=== PATIENT | male | born 1950 | race Caucasian/White ===

== ENCOUNTER 2016-06-24 00:03 | Emergency (ER) | payer OTHER, MEDICARE ==
[~2016-06-24] VITALS: Ht 180.3 cm; Wt 97.1 kg
[~2016-06-24 00:03] MED LIST: CLOPIDOGREL75 M1 PO; PROAIR HFA0.09 MG/Ac
--- NOTE | 2016-06-24 00:08 | ED GI/GU/ABDOMINAL COMPLAINT ---
History of Present Illness General Chief Complaint: General Adult Stated Complaint: ?UTI WITH GI BLEED Source: patient Exam Limitations: no limitations Vital Signs & Intake/Output Vital Signs & Intake/Output Vital Signs Date Time Temp Pulse Resp B/P Pulse O2 O2 Flow FiO2 Ox Delivery Rate 06/24 0035 98 Nasal 3.0L Cannula 06/24 0018 97.4 82 20 136/63 98 Nasal 3.0L Cannula Allergies Coded Allergies: aspirin (Severe, HIVES AND RESPIRATORY 07/29/15) Reconcile Medications Albuterol Sulfate (Proair Hfa) 0.09 MG/Actuation KRYSTIAN UKNWN (Reported) CLOPIDOGREL BISULFATE (Clopidogrel) 75 MG TAB UKN (Reported) Triage Note: PT BIBA [facility] HOME C/O OF HEMUTRIA SINCE YESTERDAY. PT CURRENTLY BEING TREATED FOR UTI. Triage Nurses Notes Reviewed? yes Onset: Gradual Duration: hour(s): Timing: recent history Quality/Severity: no pain Location: "I peed blood." Radiation: no radiation Activities at Onset: none Prior Abdominal Problems: similar symptoms Modifying Factors: Improves With: rest. Associated Symptoms: hematuria HPI: 66 yo gentleman h/o hematuria, on plavix, presents with 2 episodes of hematuria. He notes, "My urine has been dark in the past... red in the past... but today I had a small clot... that was a little different." He notes that he recently completed a course of antibiotics for a uti. He notes no difficulty voiding, no pain, dysuria, fever, chills, flank pain. He is otherwise well. Past History Travel History Traveled to [place] past 21 day No Medical History Any Pertinent Medical History? see below for history Other Medical Hx: hematuria History of MRSA: No History of VRE: No History of CDIFF: No Pneumonia Vaccine: 03/28/10 Influenza Vaccine: 02/25/13 Surgical History Surgical History: none Psychosocial History Who do you live with Spouse Services at Home None What is your primary language Japanese Family History Family History, If Any: Relation not specified for: FH: stroke Hx Contributory? No Review of Systems Review of Systems Constitutional: Reports: no symptoms. EENTM: Reports: no symptoms. Respiratory: Reports: no symptoms. Cardiovascular: Reports: no symptoms. GI: Reports: no symptoms. Genitourinary: Reports: no symptoms. Musculoskeletal: Reports: no symptoms. Skin: Reports: no symptoms. Neurological/Psychological: Reports: no symptoms. Hematologic/Endocrine: Reports: no symptoms. Immunologic/Allergic: Reports: no symptoms. All Other Systems: Reviewed and Negative Physical Exam Physical Exam General Appearance: well developed/nourished, no apparent distress Head: atraumatic Eyes: Bilateral: normal appearance. Ears, Nose, Throat, Mouth: hearing grossly normal Neck: normal inspection Respiratory: normal breath sounds Cardiovascular: regular rate/rhythm Gastrointestinal: normal bowel sounds, soft, non-tender, no organomegaly Back: normal inspection Extremities: normal range of motion Neurologic/Psych: no motor/sensory deficits, awake, alert, oriented x 3 Skin: intact, normal color, warm/dry Core Measures ACS in differential dx? No Severe Sepsis Present: No Septic Shock Present: No Progress Differential Diagnosis: UTI/pyelo, hematuria Plan of Care: Orders Procedure Date/time Status URINALYSIS 06/24 7 Complete PARTIAL THROMBOPLASTIN TIME 06/24 7 Complete PROTHROMBIN TIME 06/24 7 Complete COMPREHENSIVE METABOLIC PANEL 06/24 7 Complete CBC WITHOUT DIFFERENTIAL 06/24 7 Complete TYPE & SCREEN (NOT X-MATCH) 06/24 7 Complete Laboratory Tests 06/24/16 0155: Urine Color BLDY H, Urine Clarity HAZY H, Urine pH 7.5, Ur Specific Alex 1.015, Urine Protein 30 H, Urine Ketones NEG, Urine Nitrite NEG, Urine Bilirubin NEG, Urine Urobilinogen 0.2, Ur Leukocyte Esterase NEG, Ur Microscopic SEDIMENT EXAMINED, Urine RBC PACKD H, Urine WBC 1-3 H, Urine Hemoglobin LARGE H, Urine Glucose NEG 06/24/16 0020: Anion Gap 8, Estimated GFR 40 L, BUN/Creatinine Ratio 14.7, Glucose 199 H, Calcium 9.2, Total Bilirubin 0.6, AST 18, ALT 29, Alkaline Phosphatase 104, Total Protein 7.5, Albumin 3.7, Globulin 3.8, Albumin/Globulin Ratio 1.0 L, PT 10.1, INR 0.96, APTT 29, CBC w Diff NO MAN DIFF REQ, RBC 3.51 L, MCV 92.4, MCH 31.3 H, RDW 16.5 H, MPV 7.3 L, Gran % 74.8, Lymphocytes % 15.7 L, Monocytes % 6.7, Eosinophils % 2.5, Basophils % 0.3, Absolute Granulocytes 5.5, Absolute Lymphocytes 1.1 L, Absolute Monocytes 0.5, Absolute Eosinophils 0.2, Absolute Basophils 0, PUBS MCHC 33.8 Initial ED EKG: none Departure Departure Disposition: HOME OR SELF CARE Condition: Stable Clinical Impression Primary Impression: Hematuria Referrals: LETICIA IRAHETA,RICKY Reilly (PCP/Family) Departure Forms: Customer Survey General Discharge Information Comments Mr. burt feels well in the ED. He has to MrRaheem that he is able to void without problem. His urine is tinged with bright red blood but there are no clots. He has no signs or symptoms of a urinary tract infection and recently completed oral antibiotics. I do not believe he has an infected urine. I would like to defer antibiotics given his recent course. I encouraged close follow-up with urology.
[2016-06-24 00:18] VITALS: BP 136/63
[2016-06-24 00:43] LABS: ABSOLUTE BASOPHIL COUNT 0 /CUMM (0.0-0.2); ABSOLUTE EOSINOPHIL COUNT 0.2 /CUMM (0.0-0.7); ABSOLUTE GRANULOCYTE CT 5.5 /CUMM (1.4-6.5); ABSOLUTE LYMPH COUNT 1.1 /CUMM (1.2-3.4); ABSOLUTE MONOCYTE COUNT 0.5 /CUMM (0.10-0.60); BASOPHIL % 0.3 % (0.0-2.0); EOSINOPHIL % 2.5 % (0-5); GRANULOCYTE % 74.8 % (42.2-75.2); HEMATOCRIT 32.5 % (42-52); MEAN CORPUSCULAR HGB 31.3 PG (27.0-31.0); MEAN CORPUSCULAR HGB CONC 33.8 G/DL (33.0-37.0); MEAN CORPUSCULAR VOLUME 92.4 FL (80.0-94.0); MEAN PLATELET VOLUME 7.3 FL (7.4-10.4); PLATELET COUNT 225 /CUMM (130-400); RBC DISTRIBUTION WIDTH 16.5 % (11.5-14.5); RED BLOOD CELL CT 3.51 /CUMM (4.70-6.10); WHITE BLOOD CELL COUNT 7.3 /CUMM (4.8-10.8)
[2016-06-24 00:52] LABS: PT 10.1 SEC (9.4-12.5); PTT 29 SEC (25-37)
[2016-06-28] MEDS ORDERED: OXYCODONE HCL20 M2 PO (15:25)
[2016-06-28] MEDS ORDERED: FINASTERIDE5 M1 PO (15:25)
[2016-06-28] MEDS ORDERED: FUROSEMIDE40 M1 PO (15:25)
[2016-06-28] MEDS ORDERED: CARVEDILOL12.5 M1 PO (15:25)
[2016-06-28] MEDS ORDERED: ZETIA10 M1 PO (15:26)
[2016-06-28] MEDS ORDERED: PROAIR HFA8.5 GM INH (15:27)
[2016-06-28] MEDS ORDERED: RAPAFLO8 M1 PO (15:27)
== END 2016-06-24 02:52 ==
LOC: ERH 00:03
PROVIDERS: Pediatrics
DX: R31.9 Hematuria, unspecified (principal)
CPT/HCPCS: 81001

== ENCOUNTER → 2016-06-29 | Day surgery (SDC) | payer OTHER, MEDICARE ==
[~2016-06-29] VITALS: Ht 182.9 cm; Wt 97.1 kg
[~2016-06-29] MED LIST changes: +AMOX-CLAV 500-1 EACH PO; +CARVEDILOL12.5 M1 PO; +FINASTERIDE5 M1 PO; +FUROSEMIDE40 M1 PO; +HYDROMORPHONE HC2 M1 PO; +LANTUS SOL100 UNIT/1 SC; +LORAZEPAM1 M1 PO; +LOSARTAN POTASS25 M1 PO; +MIRALAX119 GM PO; +OXYCODONE HCL10 M2 PO; +OXYCODONE HCL20 M2 PO; +PREDNISONE10 M2 PO; +PROAIR HFA8.5 GM INH; +RANITIDINE HCL150 MG PO; +RAPAFLO8 M1 PO; +TERAZOSIN HCL2 M1 PO; +TESSALON PERLE100 M1 PO; +ZETIA10 M1 PO; +ZITHROMAX250 M2 PO
--- NOTE | 2016-06-29 17:26 | Operative Report ---
Operative/Inv Procedure Report Surgery Date: 06/29/16 Name of Procedure: Cystoscopy. TURBT of 2 cm left lateral wall tumor. Pre-Operative Diagnosis: Gross hematuria Post-Operative Diagnosis: Bladder cancer Estimated Blood Loss: less than 50ml Surgeon/Bath House Attendant: MONIQUE HAY MD Anesthesia: laryngeal mask airway Drains: 18 Czech Adhikari catheter Specimens: Bladder tumor Complications: None Operative/Procedure Note Note: The patient was taken to the operating room, and placed on the OR table in supine position. Timeout was performed, with the patient awake, to confirm correct patient, procedure, anesthesia, antibiotics, and other pertinent jose- operative information. After adequate anesthesia and antibiotics, the patient was then placed in lithotomy stirrups, draped and prepped in usual surgical fashion. A 26 Czech resectoscope sheath with a 30 angle lens, and 24 Czech loop, was inserted into the urethra, and advanced into the bladder without difficulty. Upon entering the bladder, the bladder was noted to be mildly trabeculated. Both ureteral orifices were in their orthotopic position, with clear reflux bilaterally. A solitary 2 Cm papillary lesion was visualized on the lateral wall of the bladder, consistent with tumor. No other tumors were seen on thorough and systematic surveillance. Under direct visualization, using the 24 Czech loop with cutting current, this 2 cm papillary lesion was resected from superficial to deeper layers, including partial detrusor muscle base resection. The entire tumor was removed, along with a 0.5 cm margin of normal mucosa. The tumor fragments were evacuated, and sent to pathology. Cauterization of the base of the tumor resection was performed, in order to achieve good hemostasis. The bladder was copiously irrigated once again with 3 L of sorbitol. The resectoscope was removed leaving the bladder full. The bladder was drained by placing a 18 Czech Adhikari catheter, without difficulty, and with clear fluid. 10 mL of sterile water was placed in the balloon, and the Adhikari catheter was plugged after complete decompression of the bladder. All sponge needle and instrument count were correct at the case pharmacy was contacted to determine if mitomycin 40 mg was available for bladder instillation now, and it was not. The patient tolerated procedure well was then taken to recovery room in satisfactory condition. The patient is scheduled for follow-up in the office in 1-2 weeks time. Additional Comments: Mitomycin was not available immediately postoperatively CC: MONIQUE HAY MD
== END ==
LOC: STS 01:12
DX: C67.2 Malignant neoplasm of lateral wall of bladder (principal); N32.89 Other specified disorders of bladder; R31.0 Gross hematuria; I10 Essential (primary) hypertension; J44.9 Chronic obstructive pulmonary disease, unspecified; Z99.81 Dependence on supplemental oxygen; Z87.891 Personal history of nicotine dependence
CPT/HCPCS: 88307; J0131; J0690; J2250

== ENCOUNTER 2016-07-02 08:27 | Emergency (ER) | payer OTHER, MEDICARE ==
[~2016-07-02] VITALS: Ht 180.3 cm; Wt 97.1 kg
[~2016-07-02 08:27] MED LIST changes: -AMOX-CLAV 500-1 EACH PO; -HYDROMORPHONE HC2 M1 PO; -LANTUS SOL100 UNIT/1 SC; -LORAZEPAM1 M1 PO; -LOSARTAN POTASS25 M1 PO; -MIRALAX119 GM PO; -OXYCODONE HCL10 M2 PO; -PREDNISONE10 M2 PO; -RANITIDINE HCL150 MG PO; -TERAZOSIN HCL2 M1 PO; -TESSALON PERLE100 M1 PO; -ZITHROMAX250 M2 PO
--- NOTE | 2016-07-02 08:34 | NUR ---
PT LUH FROM HOME WITH C/O SOB TODAY. PT STATES HE WAS HYPERVENTILATING BECAUSE HIS DUNCAN WASNT DRAINING. PT STATES HE HAD BLADDER SURGERY ON SUNDAY BY DR HAY.
--- NOTE | 2016-07-02 08:39 | ED DYSPNEA/ASTHMA COMPLAINT ---
History of Present Illness General Chief Complaint: Dyspnea (COPD, CHF, Other) Stated Complaint: SOB Source: patient, family, EMS Exam Limitations: no limitations Vital Signs & Intake/Output Vital Signs & Intake/Output Vital Signs Date Time Temp Pulse Resp B/P Pulse O2 O2 Flow FiO2 Ox Delivery Rate 07/02 1314 98.0 77 20 147/65 99 Nasal 3.0L Cannula 07/02 937 100 Nasal 3.5L Cannula 07/02 918 98.7 80 20 118/60 96 Room Air 07/02 0833 98.0 85 20 127/62 98 Room Air Allergies Coded Allergies: aspirin (Severe, HIVES AND RESPIRATORY 07/29/15) Reconcile Medications Albuterol Sulfate (Proair Hfa) 90 MCG HFA.AER.AD 2 PUF INH Q4 HRS NEEDED PRN BREATHING PROBLEMS (Reported) Albuterol Sulfate (Proair Hfa) 0.09 MG/Actuation KRYSTIAN UKNWN (Reported) Amoxicillin/Potassium Clav (Amox-Clav 500-125 MG Tablet) 500 MG-125 MG TABLET 1 TAB PO BID ANTIBIOTIC, INFECTION (Reported) Carvedilol 12.5 MG TABLET 1 TAB PO BID HEART (Reported) Clopidogrel Bisulfate (Clopidogrel) 75 MG TABLET 1 TAB PO DAILY BLOOD THINNER (Reported) Ezetimibe (Zetia) 10 MG TABLET 1 TAB PO DAILY CHOLESTEROL (Reported) Finasteride 5 MG TABLET 1 TAB PO DAILY PROSTATE (Reported) Furosemide 40 MG TABLET 1 TAB PO BID WATER PILL (Reported) Hydromorphone HCl 2 MG TABLET 1 TAB PO TID PAIN (Reported) Oxycodone HCl 20 MG TABLET 1 TAB PO 4 TIMES/DAY PAIN (Reported) Silodosin (Rapaflo) 8 MG CAPSULE 1 CAP PO DAILY PROSTATE (Reported) Triage Note: PT BIBA FROM HOME WITH C/O SOB TODAY. PT STATES HE WAS HYPERVENTILATING BECAUSE HIS DUNCAN WASNT DRAINING. PT STATES HE HAD BLADDER SURGERY ON SUNDAY BY DR MARY. Triage Nurses Notes Reviewed? yes Onset: Abrupt Duration: 3 AM, THEN AGAIN AT 5 AM Timing: multiple episodes today Severity: mild Activities at Onset: PROBLEM WITH DUNCAN CATHETER Associated Symptoms: anxiety, HYPERVENTILATION HPI: This is a 66-year-old carmella who presents via EMS from home accompanied by his 9- year-old grandson for chief complaint of shortness of breath. EMS was called twice since this morning for Duncan catheter issues. Became both times and change the direction of the bowel which allowed the urine flow. He states the second time he was very worried and started to hyperventilate. EMS asked him if he wanted to come to the ER for evaluation. Patient currently states he has no complete. No chest pain or shortness of breath. No abdominal pain. He states he feels a little constipated. We'll catheter in place and is draining urine. He is status post a cancerous polyp removal by Dr. Mary is due to get chemotherapy once weekly. According to the son who arrived later his usually helps to take care of him at home has been admitted to the hospital for last 3 days. Past History Travel History Traveled to [place] past 21 day No Medical History Any Pertinent Medical History? see below for history Respiratory: COPD Endocrine: diabetes Other Medical Hx: hematuria History of MRSA: No History of VRE: No History of CDIFF: No Surgical History Surgical History: none Psychosocial History Who do you live with Spouse Services at Home None What is your primary language Nepali Tobacco Use: Never used ETOH Use: denies use Illicit Drug Use: denies illicit drug use Family History Family History, If Any: Relation not specified for: FH: stroke Hx Contributory? No Review of Systems Review of Systems Constitutional: Denies: chills, fever. EENTM: Reports: no symptoms. Respiratory: Reports: short of breath. Denies: cough, sputum production. Cardiovascular: Denies: chest pain. GI: Denies: abdominal pain. Genitourinary: Reports: see HPI (CATHETER ISSUE). Musculoskeletal: Denies: back pain. Skin: Reports: no symptoms. Neurological/Psychological: Reports: no symptoms. Hematologic/Endocrine: Reports: bleeding. Denies: bruising, polyuria, polydipsia. Immunologic/Allergic: Denies: splenectomy. All Other Systems: Reviewed and Negative Physical Exam Physical Exam General Appearance: well developed/nourished, alert, awake, mild distress Head: atraumatic, normal appearance Eyes: Bilateral: normal appearance, PERRL, EOMI. Ears, Nose, Throat: normal pharynx, normal ENT inspection, hearing grossly normal Neck: normal inspection, supple Respiratory: normal breath sounds, chest non-tender, no respiratory distress Cardiovascular: regular rate/rhythm Peripheral Pulses: 2+ radial (R), 2+ radial (L) Gastrointestinal: FIRM, NONTENDER, DISTENDED, Duncan CATHETER IN PLACE Extremities: normal inspection Neurologic/Psych: awake, alert, oriented x 3 Skin: intact, normal color Core Measures ACS in differential dx? No Severe Sepsis Present: No Septic Shock Present: No Progress Differential Diagnosis: CHF/PNA, SBO Plan of Care: Orders Procedure Date/time Status CBC WITHOUT DIFFERENTIAL 07/03 599 Active BASIC ELECTROLYTES PLUS BUN&CR 07/03 599 Active Heart Healthy Diet 07/02 D Active Admit to inpatient 07/02 1158 Active Vital Signs 07/02 1158 Active Code Status 07/02 1158 Active COMPREHENSIVE METABOLIC PANEL 07/02 1004 Complete CBC WITHOUT DIFFERENTIAL 07/02 1004 Complete EKG 07/02 1004 Active Intake & Output 07/02 0938 Active Current Medications Sig/Tim Start time Last Medication Dose Stop Time Status Admin Sodium Phosphate 1 UNIT ONCE ONE 07/02 0845 CAN 07/02 09 Laboratory Tests 07/02/16 1018: Anion Gap 4 L, Estimated GFR 47 L, BUN/Creatinine Ratio 15.3, Glucose 192 H, Calcium 9.0, Total Bilirubin 0.7, AST 16 L, ALT 22, Alkaline Phosphatase 94, Total Protein 7.0, Albumin 3.5, Globulin 3.5, Albumin/Globulin Ratio 1.0 L, CBC w Diff MAN DIFF ORDERED, RBC 3.33 L, MCV 93.8, MCH 31.2 H, RDW 16.6 H, MPV 7.3 L, Gran % 83.5 H, Lymphocytes % 9.2 L, Monocytes % 5.5, Eosinophils % 1.8 , Basophils % 0 L, Absolute Granulocytes 6.2, Absolute Lymphocytes 0.7 L, Absolute Monocytes 0.4, Absolute Eosinophils 0.1, Absolute Basophils 0, Platelet Estimate VERIFIED BY SMEAR, Polychromasia 1+, Basophilic Stippling 1+, Anisocytosis 1+, Stomatocytes 1+, PUBS MCHC 33.3 07/02/2016 10:06:38 AM Son reports that his father is unsafe to go home because there is obesity care of him. Patient is wheelchair bound at baseline. will usually helps him out with medications and foods currently hospitalized. Case management was involved. At this time blood work is being drawn to see if there is any medical need for admission. Son was informed of plan of care. Patient issued a denial. Social admission booked. D/W Dr. Duran. 1:33 PM Patient taken home by daughter. Social admission cancelled. (SUGEY IRAHETA,MARÍA) Diagnostic Imaging: Viewed by Me: Radiology Read. Discussed w/RAD: Radiology Read. Radiology Impression: PATIENT: TEA JUAREZ PRESENT AGE: 66 PATIENT ACCOUNT NO: [id number] : 49 LOCATION: ER ORDERING PHYSICIAN: MARÍA MAYES MD SERVICE DATE: 07/02/16 EXAM TYPE: RAD - XRY -ABD MULTI VIEW W/PA CHEST EXAMINATION: XR ABDOMEN WITH PA CHEST CLINICAL INDICATION: Dyspnea. Firm abdomen. No bowel movement for 3 days. COMPARISON: Prior chest x-ray of 11/03/10. TECHNIQUE: 2 views of the abdomen were obtained with an AP chest x-ray. FINDINGS: ABDOMEN: There is a large amount of stool in the right hemicolon and proximal transverse colon. The distal colon is relatively empty. No dilated small bowel loops are seen. Vascular calcification is noted. A left total hip arthroplasty is partially visualized. CHEST: The lungs are well expanded and clear with no focal consolidation, pulmonary edema or other abnormality demonstrated. Heart size is unremarkable. IMPRESSION: 1. Large amount stool in the proximal colon with relatively decompressed distal colon. While these findings could be related to simple fecal retention, an obstructing lesion in the region of the splenic flexure is possible. 2. Unremarkable chest. DICTATED BY: PAVAN SYLVESTER MD DATE/TIME DICTATED:07/02/16921 SENIOR ACCOUNT CLERK:ISELA DATE/TIME TRANSCRIBED:07/02/16921 CONFIDENTIAL, DO NOT COPY WITHOUT APPROPRIATE AUTHORIZATION. <Electronically signed in Other Vendor System> SIGNED BY: PAVAN SYLVESTER MD 07/02/16929 Initial ED EKG: NSR Prior EKG: unchanged Departure Departure Time of Disposition: 1333 Disposition: HOME OR SELF CARE Condition: Stable Clinical Impression Primary Impression: Hospital admission due to social situation Secondary Impressions: Fecal impaction of colon, Duncan catheter problem Referrals: LETICIA IRAHETA,RICKY Reilly (PCP/Family) Additional Instructions: Follow up with the referrals as per Nilda from our case management department. Please take the stool softeners as previously advised as there is a moderate amount of stool on your abdominal x-ray. Follow-up with Dr. Mary for your chemotherapy treatments. Return as needed. Departure Forms: Customer Survey General Discharge Information Admission Note Spoke With: DEANNA IRAHETA,RAHAT Documentation of Exam: Documentation of any treatments & extenuating circumstances including Concerns Regarding Discharge (functional status, medication knowledge or non-compliance, living conditions, etc.) that warrant an admission rather than observation: [ Family feels patient is unsafe at home on his own as is admitted to the hospital. Family members unable to stay with him at home. ] Critical Care Note Critical Care Note Critical Care Time: non-applicable
--- NOTE | 2016-07-02 08:40 | NUR ---
DR MAYES IN FOR GLOAL
[2016-07-02] MEDS ORDERED: HYDROMORPHONE HC2 M1 PO (08:51)
[2016-07-02] MEDS ORDERED: AMOX-CLAV 500-1 EACH PO (08:52)
--- NOTE | 2016-07-02 08:56 | NUR ---
PT TO X-RAY VIA STRETCHER.
--- NOTE | 2016-07-02 09:21 | NUR ---
BACK FROM X-RAY
--- NOTE | 2016-07-02 09:30 | RADIOLOGY REPORT ---
EXAMINATION: XR ABDOMEN WITH PA CHEST CLINICAL INDICATION: Dyspnea. Firm abdomen. No bowel movement for 3 days. COMPARISON: Prior chest x-ray of 11/03/10. TECHNIQUE: 2 views of the abdomen were obtained with an AP chest x-ray. FINDINGS: ABDOMEN: There is a large amount of stool in the right hemicolon and proximal transverse colon. The distal colon is relatively empty. No dilated small bowel loops are seen. Vascular calcification is noted. A left total hip arthroplasty is partially visualized. CHEST: The lungs are well expanded and clear with no focal consolidation, pulmonary edema or other abnormality demonstrated. Heart size is unremarkable. IMPRESSION: 1. Large amount stool in the proximal colon with relatively decompressed distal colon. While these findings could be related to simple fecal retention, an obstructing lesion in the region of the splenic flexure is possible. 2. Unremarkable chest.
--- NOTE | 2016-07-02 09:48 | NUR ---
SHANIQUA FROM CASE MANAGEMENT AT BEDSIDE.
--- NOTE | 2016-07-02 10:16 | NUR ---
07/02 CASE MGMT- MET WITH PT AND PT SON- PT IS ADMITTED UPSTAIRS AT THIS TIME AND IS PRIMARY CAREGIVER OF PT WHOM STATES HE USUALLY USES A WHEELCHAIR TO GET AROUND BUT SINCE HIS PROCEDURE WITH DR HAY A FEW DAYS AGO HE HAS BEEN HAVING DIFFICULTY GETTING AROUND DUE TO DUNCAN AND HAS BEEN GETTING ANXIOUS DUE TO DUNCAN. PT STATES HE HAS [facility] IN PLACE AND THEY COME OUT ONCE A WEEK. 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 PT AND PT SON MADE AWARE THAT IF PT DOENS'T MEET CRITERIA FOR MEDICAL ADMISSION THAT WE NEED TO MAKE SURE PT HAS A SAFE DISCHARGE PLAN WHETHER 24 HOUR PRIVATE PAY IS PUT IN PLACE OR FAMILY CAN STAY WITH PT UNTIL IS D/C'D. CASE MGMT WILL CONTINUE TO FOLLOW. PT REQUESTING I CONTACT A FAMILY FRIEND BERNIE [phone] TO SEE IF SHE COULD STAY WITH PT OR PT DAUGHTER ANSLEY [phone].
--- NOTE | 2016-07-02 10:32 | NUR ---
07/02 CASE MGMT- SPOKE WITH PT FRIEND BERNIE STATES SHE WILL NEED SOME TIME TO DISCUSS WITH HER FAMILY AND TO DECIDE IF SHE WILL BE CAPABLE OF STAYING 24 HOURS A DAY WITH PT- ATTEMPTED CONTACTING BILL PT DAUGHTER WHICH WAS BUSY.
[2016-07-02 10:45] LABS: ABSOLUTE BASOPHIL COUNT 0 /CUMM (0.0-0.2); ABSOLUTE EOSINOPHIL COUNT 0.1 /CUMM (0.0-0.7); ABSOLUTE GRANULOCYTE CT 6.2 /CUMM (1.4-6.5); ABSOLUTE LYMPH COUNT 0.7 /CUMM (1.2-3.4); ABSOLUTE MONOCYTE COUNT 0.4 /CUMM (0.10-0.60); BASOPHIL % 0 % (0.0-2.0); EOSINOPHIL % 1.8 % (0-5); GRANULOCYTE % 83.5 % (42.2-75.2); HEMATOCRIT 31.2 % (42-52); MEAN CORPUSCULAR HGB 31.2 PG (27.0-31.0); MEAN CORPUSCULAR HGB CONC 33.3 G/DL (33.0-37.0); MEAN CORPUSCULAR VOLUME 93.8 FL (80.0-94.0); MEAN PLATELET VOLUME 7.3 FL (7.4-10.4); PLATELET COUNT 175 /CUMM (130-400); RBC DISTRIBUTION WIDTH 16.6 % (11.5-14.5); RED BLOOD CELL CT 3.33 /CUMM (4.70-6.10); WHITE BLOOD CELL COUNT 7.4 /CUMM (4.8-10.8)
--- NOTE | 2016-07-02 10:58 | NUR ---
07/02 CASE MGMT- CALL LUPE GIBBS STATES SHE WILL NEED TO SPEAK WITH PT SON AND DAUGHTER TO SEE IF THEY WILL HELP HER OUT AND WILL NOT GIVE ANY DECISION YET ON WHETHER SHE IS AGREEING AT THIS TIME. CASE MGMT WILL CONTINUE TO FOLLOW.
--- NOTE | 2016-07-02 11:30 | NUR ---
2 case mgmt-pt son and grandson back in room and made aware Linda family friend attempting to contact pt son and daughter regarding d/c plan. Pt son state pt john has been staying with pt over night and caring for him- pt grandson claims he is 14?? Pt grandson looks younger than 14. I felt and explained it would be more appropropriate if adult was alyssa to care for pt at home until was d/c'd.
--- NOTE | 2016-07-02 11:43 | NUR ---
07/02 case mgmt- spoke with pt daughter jolly whom states she lives in [place] and has no brakes on her car and isn't able to come to help father and states that pt son just had a new car purchased for him by father and that he should be the one going over there and caring for pt. Pt states he wants to go home but pt son states he is not going home he is unsafe and there will be no one to watch him there.
--- NOTE | 2016-07-02 12:00 | NUR ---
07/02 case mgmt- pt issued denial letter for social admission at 11:53 am on 07/02/16- pt signed and given a copy.
--- NOTE | 2016-07-02 12:30 | NUR ---
2/5 case mgmt- call from pt daughter stating that after her breaks are done she may be able to pick pulling machine operator pt later and requesting to speak with pt. phone call transferred to pt room.
--- NOTE | 2016-07-02 12:43 | NUR ---
07/02 case mgmt- call from pt daughter stating her breaks should be done soon and that she will be here to picker packer pt and she states she will be with pt 24 hours a day until pt is d/c from [facility].
--- NOTE | 2016-07-02 13:00 | NUR ---
07/02 CASE MGMT- PT DAUGHTER PICKING UP PT AND STATES SHE WILL BE WITH PT 24 HOURS A DAY UNTIL PT D/C'D FROM HOSPITAL. ALSO STATES PT HAS APPT WITH DR HAY TOMORROW REGARDING DUNCAN CATH. PT HAS [facility] IN PLACE AND THEY ARE DUE TO COME OUT TOMORROW PER PT. CALL PLACED TO [facility] TO INFORM AND FOR POSSIBLE VISIT IF NOT SCHEDULED.
[2016-07-02 13:14] VITALS: BP 147/65
--- NOTE | 2016-07-02 13:16 | NUR ---
PT MEDICATED WTIH ROXICODONE PER ORDERS DAUGHTER AT BEDSIDE
--- NOTE | 2016-07-02 13:24 | NUR ---
PT GIVEN D/C INSTRUCTIONS, VERBALIZED UNDERSTANDING OF SAME. DAUGHTER LEFT TO GET PORTABLE O2 TANK FOR TRANSPORT TO HOME.
--- NOTE | 2016-07-02 15:11 | NUR ---
/ CASE MGMT- SPOKE WITH MIKA Partida FROM [facility] AWARE OF PT VISIT TO ER AND WILL SCHEDULE VISIT TO PT HOSUE TOMORROW.
== END 2016-07-02 13:42 ==
LOC: CANRESERV → ENRESERVTM → ENRESERVDT → ERH 08:27 → ERHI 11:58 → ERH 11:58 → EDBEDREQ 12:51 → ERH 13:42 → CANBEDREQ 07-03 10:18
PROVIDERS: Emergency Medicine
DX: R45.851 Suicidal ideations (principal); K56.41 Fecal impaction; T83.098A Other mechanical complication of other urinary catheter, initial encounter; F41.9 Anxiety disorder, unspecified; R06.4 Hyperventilation; E11.9 Type 2 diabetes mellitus without complications
CPT/HCPCS: 74022; 82436; 93005; 93010

== ENCOUNTER 2016-07-05 10:19 | Emergency (ER) | payer OTHER, MEDICARE ==
[~2016-07-05] VITALS: Ht 195.6 cm; Wt 97.1 kg
[~2016-07-05 10:19] MED LIST changes: +AMOX-CLAV 500-1 EACH PO; +HYDROMORPHONE HC2 M1 PO
--- NOTE | 2016-07-05 11:29 | ED GENERAL ADULT ---
History of Present Illness General Chief Complaint: General Adult Stated Complaint: CONSTIPATION Source: patient, old records Exam Limitations: no limitations Vital Signs & Intake/Output Vital Signs & Intake/Output Vital Signs Date Time Temp Pulse Resp B/P Pulse O2 O2 Flow FiO2 Ox Delivery Rate 07/05 1244 98.3 69 18 141/74 100 Room Air 07/05 1136 99 Room Air 07/05 1033 96.9 91 20 160/70 97 Nasal 3.0L Cannula Allergies Coded Allergies: aspirin (Severe, HIVES AND RESPIRATORY 07/29/15) Reconcile Medications Albuterol Sulfate (Proair Hfa) 90 MCG HFA.AER.AD 2 PUF INH Q4 HRS NEEDED PRN BREATHING PROBLEMS (Reported) Amoxicillin/Potassium Clav (Amox-Clav 500-125 MG Tablet) 500 MG-125 MG TABLET 1 TAB PO BID ANTIBIOTIC, INFECTION (Reported) Carvedilol 12.5 MG TABLET 1 TAB PO BID HEART (Reported) Clopidogrel Bisulfate (Clopidogrel) 75 MG TABLET 1 TAB PO DAILY BLOOD THINNER (Reported) Ezetimibe (Zetia) 10 MG TABLET 1 TAB PO DAILY CHOLESTEROL (Reported) Finasteride 5 MG TABLET 1 TAB PO DAILY PROSTATE (Reported) Furosemide 40 MG TABLET 1 TAB PO BID WATER PILL (Reported) Hydromorphone HCl 2 MG TABLET 1 TAB PO TID PAIN (Reported) Oxycodone HCl 20 MG TABLET 1 TAB PO 4 TIMES/DAY PAIN (Reported) Polyethylene Glycol 3350 (Miralax) 17 GRAM/DOSE POWDER 17 GM PO DAILY constipation mix with water, juice, soda, coffee or tea use until stools soft and regular Silodosin (Rapaflo) 8 MG CAPSULE 1 CAP PO DAILY PROSTATE (Reported) Triage Note: PT STATES HE HASN'T BEEN ABLE TO URINATE OR MOVE HIS BOWELS SINCE YESTERDAY. PT REPORTS THAT HIS BLADDER IF FULL. Triage Nurses Notes Reviewed? yes Onset: Just prior to arrival Duration: hour(s):, constant, continues in ED Timing: recent history Injury Environment: home Severity: moderate No Modifying Factors: none Associated Symptoms: constipation HPI: The patient complains of no bowel movement for 5 days prior to admission. He also complains of no urine output for 6 hours prior to admission with abdominal bloating and discomfort. He denies fever chills nausea vomiting diarrhea chest pain cough shortness breath headache dysuria rash bleeding Past History Travel History Traveled to [place] past 21 day No Medical History Any Pertinent Medical History? see below for history Respiratory: COPD, O2 DEPENDANT 3.5L Endocrine: diabetes Other Medical Hx: hematuria History of MRSA: No History of VRE: No History of CDIFF: No Surgical History Surgical History: none Psychosocial History Who do you live with Spouse Services at Home None What is your primary language Angolan Tobacco Use: Quit >30 days ago ETOH Use: denies use Illicit Drug Use: denies illicit drug use Family History Family History, If Any: Relation not specified for: FH: stroke Hx Contributory? No Review of Systems Review of Systems Constitutional: Reports: no symptoms. EENTM: Reports: no symptoms. Respiratory: Reports: no symptoms. Cardiovascular: Reports: no symptoms. GI: Reports: see HPI, abdominal pain, constipation. Genitourinary: Reports: see HPI. Musculoskeletal: Reports: no symptoms. Skin: Reports: no symptoms. Neurological/Psychological: Reports: no symptoms. Hematologic/Endocrine: Reports: no symptoms. Immunologic/Allergic: Reports: no symptoms. All Other Systems: Reviewed and Negative Physical Exam Physical Exam General Appearance: well developed/nourished, alert, awake, anxious, mild distress, obese Head: atraumatic, normal appearance Eyes: Bilateral: normal appearance, PERRL, EOMI. Ears, Nose, Throat: normal pharynx, normal ENT inspection Neck: normal inspection, supple, full range of motion, no midline tenderness Respiratory: normal breath sounds, chest non-tender, no respiratory distress, quiet respiration, lungs clear Cardiovascular: regular rate/rhythm, normal peripheral pulses, norml femoral pulses equa Peripheral Pulses: 4+ carotid (R), 4+ carotid (L) Gastrointestinal: normal bowel sounds, soft, non-tender, distention Back: normal inspection, normal range of motion Extremities: normal inspection, normal capillary refill, normal range of motion, no edema Neurologic/Psych: no motor/sensory deficits, awake, alert, oriented x 3, normal gait, normal mood/affect, palm gatherer II-XII nml as tested Reflexes: 2+: bicep (R), bicep (L). Skin: intact, normal color, cyanosis Lymphatic: no anterior cervical sandra Core Measures ACS in differential dx? No CVA/TIA Diagnosis: No Severe Sepsis Present: No Septic Shock Present: No Progress Differential Diagnoses I considered the following diagnoses in my evaluation of the patient: Urinary retention UTI constipation Plan of Care: Orders Procedure Date/time Status Adhikari, Insertion/Removal/Asses 07/05 1120 Active CULTURE,URINE 07/05 1120 Active Microbiology 07/05 1120 URINE ROUT: Urine Culture - ORD Initial ED EKG: none Departure Departure Time of Disposition: 1218 Disposition: HOME OR SELF CARE Condition: Stable Clinical Impression Primary Impression: Acute urinary retention Secondary Impressions: Constipation due to opioid therapy Referrals: LETICIA IRAHETA,RICKY Reilly (PCP/Family) Departure Forms: Customer Survey General Discharge Information Prescriptions: Current Visit Scripts Polyethylene Glycol 3350 (Miralax) 17 GM PO DAILY #527 GM mix with water, juice, soda, coffee or tea use until stools soft and regular Critical Care Note Critical Care Note Critical Care Time: non-applicable
[2016-07-05] MEDS ORDERED: MIRALAX119 GM PO (12:22)
[2016-07-05 12:44] VITALS: BP 141/74
== END 2016-07-05 12:46 ==
LOC: ERH 10:19
DX: K59.03 Drug induced constipation (principal); T40.2X5A Adverse effect of other opioids, initial encounter; R33.9 Retention of urine, unspecified
CPT/HCPCS: 87086; 96372

== ENCOUNTER 2016-07-21 10:41 | Emergency (ER) | payer OTHER, MEDICARE ==
[~2016-07-21] VITALS: Ht 182.9 cm; Wt 97.1 kg
[~2016-07-21 10:41] MED LIST changes: +MIRALAX119 GM PO
--- NOTE | 2016-07-21 11:23 | ED UPPER/LOWER EXTREMITY COMPL ---
History of Present Illness General Chief Complaint: Hand or Wrist Injury Stated Complaint: LEFT WRIST PAIN/SWELLING Source: patient Exam Limitations: no limitations Vital Signs & Intake/Output Vital Signs & Intake/Output Vital Signs Date Time Temp Pulse Resp B/P Pulse O2 O2 Flow FiO2 Ox Delivery Rate 07/21 1103 97.5 87 20 130/73 91 Nasal 2.5L Cannula Allergies Coded Allergies: aspirin (Severe, HIVES AND RESPIRATORY 07/29/15) Reconcile Medications Albuterol Sulfate (Proair Hfa) 90 MCG HFA.AER.AD 2 PUF INH Q4 HRS NEEDED PRN BREATHING PROBLEMS (Reported) Carvedilol 12.5 MG TABLET 1 TAB PO BID HEART (Reported) Clopidogrel Bisulfate (Clopidogrel) 75 MG TABLET 1 TAB PO DAILY BLOOD THINNER (Reported) Ezetimibe (Zetia) 10 MG TABLET 1 TAB PO DAILY CHOLESTEROL (Reported) Finasteride 5 MG TABLET 1 TAB PO DAILY PROSTATE (Reported) Furosemide 40 MG TABLET 1 TAB PO BID WATER PILL (Reported) Hydromorphone HCl 2 MG TABLET 1 TAB PO TID PAIN (Reported) Insulin Glargine,Hum.rec.anlog (Lantus Solostar) 100 UNIT/ML (3 ML) INSULN.PEN 25 UNIT SC QPM DIABETES (Reported) Oxycodone HCl 20 MG TABLET 1 TAB PO 4 TIMES/DAY PAIN (Reported) Polyethylene Glycol 3350 (Miralax) 17 GRAM/DOSE POWDER 17 GM PO DAILY constipation mix with water, juice, soda, coffee or tea use until stools soft and regular Silodosin (Rapaflo) 8 MG CAPSULE 1 CAP PO DAILY PROSTATE (Reported) Terazosin HCl 2 MG CAPSULE 1 CAP PO QPM UNKNOWN (Reported) Triage Note: PT TO ED S/P "I GOT MY LEFT HAND STUCK IN THE WHEELCHAIR, PULLED IT OUT, NOW IT HURTS SO BAD". NO LAC OR SWELLING NOTED, ICE PACK MAINTAINED. Triage Nurses Notes Reviewed? yes Onset: Abrupt Duration: constant Timing: recent history Severity: severe Severity Numbers: 8 HPI: Patient is a 66-year-old male who is wheelchair bound who states that yesterday patient was reaching over with his left hand in between the seat of his wheelchair where he states that for proximal my 5 minutes his hand and wrist were stuck when he tried to abruptly move this however after 5 minutes he removed the hand and states that since he's had charts having severe left hand and wrist pain. Patient does take significant pain medications for his chronic history. Skin is intact. Patient states that wrist movement MAKES worse. (ZAFAR LEAVITT) Past History Travel History Traveled to [place] past 21 day No Medical History Any Pertinent Medical History? see below for history Neurological: NONE EENT: NONE Cardiovascular: NONE Respiratory: COPD, O2 DEPENDANT 3.5L Gastrointestinal: NONE Hepatic: NONE Renal: NONE Musculoskeletal: NONE Psychiatric: NONE Endocrine: diabetes Blood Disorders: NONE Cancer(s): NONE TIPPLE BOSS/Reproductive: NONE Other Medical Hx: hematuria History of MRSA: No History of VRE: No History of CDIFF: No Surgical History Surgical History: none Psychosocial History Who do you live with Spouse Services at Home None What is your primary language Nauruan Tobacco Use: Quit >30 days ago ETOH Use: denies use Illicit Drug Use: denies illicit drug use Family History Family History, If Any: Relation not specified for: FH: stroke Hx Contributory? No (ZAFAR LEAVITT) Review of Systems Review of Systems Constitutional: Reports: no symptoms. EENTM: Reports: no symptoms. Respiratory: Reports: no symptoms. Cardiovascular: Reports: no symptoms. Gastrointestinal/Abdominal: Reports: no symptoms. Genitourinary: Reports: no symptoms. Musculoskeletal: Reports: see HPI, joint pain. Skin: Reports: no symptoms. Neurological/Psychological: Reports: no symptoms. Hematologic/Endocrine: Reports: no symptoms. Immunological: Reports: no symptoms. All Other Systems: Reviewed and Negative (ZAFAR LEAVITT) Physical Exam Physical Exam General Appearance: no apparent distress, alert, comfortable Neurologic/Tendon: normal sensation, normal motor functions, normal tendon functions, responds to pain, no evidence tendon injury, no pulse deficit Skin: intact, normal color, warm/dry Comments: Well-developed well-nourished no apparent distress. HEENT: Atraumatic, extraocular motion intact Neck: Supple, no lymphadenopathy Back: Nontender Respiratory: No respiratory distress Extremities: Left elbow normal inspection nontender full active range of motion Left wrist normal inspection generalized point tenderness noted, decreased active range of motion noted skin intact radial pulses +2 Left hand noted first digit point tenderness normal inspection mild scaphoid tenderness Decreased active range of motion noted with flexion abduction and adduction with pain Capillary refill intact dermatomes intact Neuro: Alert and oriented x3 Psych: Mood affect normal, normal memory normal judgment. (ZAFAR LEAVITT) Progress Differential Diagnosis: arterial insufficiency, compartment syndrome, contusion, dislocation, DVT, fracture, gout, septic arthritis, sprain, tendon injury Plan of Care: Orders Procedure Date/time Status XRY-WRIST COMPLETE-LEFT 07/21 1125 Active XRY-HAND, 3 View LEFT 07/21 1125 Active No osseous injury noted on x-ray Thumb spica splint was applied by me with no complications Patient was strongly advised to follow-up with orthopedic doctor on Sunday if symptoms continue and he will comply. (ZAFAR LEAVITT) Diagnostic Imaging: Viewed by Me: Radiology Read. Comments: PATIENT: TEA JUAREZ PRESENT AGE: 66 PATIENT ACCOUNT NO: [id number] : 49 LOCATION: [facility] ORDERING PHYSICIAN: ZAFAR FAJARDO SERVICE DATE: 07/21/16-1125 EXAM TYPE: RAD - XRY-HAND, LEFT; XRY-WRIST COMPLETE-LEFT EXAMINATION: XR LEFT WRIST, LEFT HAND CLINICAL INFORMATION: Left hand and wrist pain COMPARISON: None. TECHNIQUE: 4 views of the left wrist. 3 views of the left hand. FINDINGS: Left wrist: Osseous alignment is anatomic. No acute fracture is seen. No significant focal soft tissue abnormality is identified. Left hand: Osseous alignment is anatomic. No acute fracture is seen. No significant focal soft tissue abnormality is identified. IMPRESSION: No acute findings identified in the left wrist or hand. (ZAFAR LEAVITT) Departure Departure Disposition: HOME OR SELF CARE Condition: Stable Clinical Impression Primary Impression: Left wrist pain Referrals: LETICIA IRAHETA,RICKY Reilly (PCP/Family) SHAILA IRAHETA,TEA Leyva Additional Instructions: As discussed continue to leave the splint on the has been applied to you at all times UNTIL YOU can move your wrist and thumb without pain. Continue home medications especially your pain medications as directed. Begin to ice the area directly 20 minutes every 2 hours. If no better on Sunday follow-up with orthopedic Dr. LINTON for further evaluation treatment. Departure Forms: Customer Survey General Discharge Information (ZAFAR LEAVITT) PA/GEAR CODING MACHINE OPERATOR Co-Sign Statement Statement: ED Attending supervision documentation- [X] I saw and evaluated the patient. I have also reviewed all the pertinent lab results and diagnostic results. I agree with the findings and the plan of care as documented in the PA's/GEAR CODING MACHINE OPERATOR's documentation. [X] I have reviewed the ED Record and agree with the PA's/GEAR CODING MACHINE OPERATOR's documentation. [] Additions or exceptions (if any) to the PAs/GEAR CODING MACHINE OPERATOR's note and plan are summarized below: [] (NEGRITA IRAHETA,PATITO Multani) Procedures Splinting Location: LEFT WRIST AND HAND Manual Alignment Performed: No Hand-Made Type: orthoglass Splint: thumb spica Splint Applied By: splint applied by me Pre-Proc Neuro Vasc Exam: normal Post-Proc Neuro Vasc Exam: normal (ZAFAR LEAVITT)
[2016-07-21] MEDS ORDERED: LANTUS SOL100 UNIT/1 SC (11:27)
[2016-07-21] MEDS ORDERED: TERAZOSIN HCL2 M1 PO (11:27)
--- NOTE | 2016-07-21 11:56 | RADIOLOGY REPORT ---
EXAMINATION: XR LEFT WRIST, LEFT HAND CLINICAL INFORMATION: Left hand and wrist pain COMPARISON: None. TECHNIQUE: 4 views of the left wrist. 3 views of the left hand. FINDINGS: Left wrist: Osseous alignment is anatomic. No acute fracture is seen. No significant focal soft tissue abnormality is identified. Left hand: Osseous alignment is anatomic. No acute fracture is seen. No significant focal soft tissue abnormality is identified. IMPRESSION: No acute findings identified in the left wrist or hand.
[2016-07-21 12:10] VITALS: BP 133/66
[2016-07-22] MEDS ORDERED: OXYCODONE HCL10 M2 PO (05:51)
== END 2016-07-21 12:12 ==
LOC: ERH 10:41
DX: M25.532 Pain in left wrist (principal)
CPT/HCPCS: 73110-LT; 73130-LT

== ENCOUNTER 2016-07-22 05:33 | Emergency (ER) | payer OTHER, MEDICARE ==
[~2016-07-22] VITALS: Ht 180.3 cm; Wt 97.1 kg
[~2016-07-22 05:33] MED LIST changes: +LANTUS SOL100 UNIT/1 SC; +TERAZOSIN HCL2 M1 PO
--- NOTE | 2016-07-22 05:37 | ED UPPER/LOWER EXTREMITY COMPL ---
History of Present Illness General Chief Complaint: Hand or Wrist Injury Stated Complaint: BIBA LEFT WRIST PAIN Source: patient, old records, EMS Exam Limitations: no limitations Vital Signs & Intake/Output Vital Signs & Intake/Output Vital Signs Date Time Temp Pulse Resp B/P Pulse O2 O2 Flow FiO2 Ox Delivery Rate 07/22 0541 100 Nasal 4.0L Cannula 07/22 0540 96.9 89 20 148/66 100 Nasal 3.0L Cannula Allergies Coded Allergies: aspirin (Severe, HIVES AND RESPIRATORY 07/29/15) Reconcile Medications Albuterol Sulfate (Proair Hfa) 90 MCG HFA.AER.AD 2 PUF INH Q4 HRS NEEDED PRN BREATHING PROBLEMS (Reported) Carvedilol 12.5 MG TABLET 1 TAB PO BID HEART (Reported) Clopidogrel Bisulfate (Clopidogrel) 75 MG TABLET 1 TAB PO DAILY BLOOD THINNER (Reported) Ezetimibe (Zetia) 10 MG TABLET 1 TAB PO DAILY CHOLESTEROL (Reported) Finasteride 5 MG TABLET 1 TAB PO DAILY PROSTATE (Reported) Furosemide 40 MG TABLET 1 TAB PO BID WATER PILL (Reported) Hydromorphone HCl 2 MG TABLET 1 TAB PO TID PAIN (Reported) Insulin Glargine,Hum.rec.anlog (Lantus Solostar) 100 UNIT/ML (3 ML) INSULN.PEN 25 UNIT SC QPM DIABETES (Reported) Oxycodone HCl 20 MG TABLET 1 TAB PO 4 TIMES/DAY PAIN (Reported) Oxycodone HCl 10 MG TABLET 1-2 TAB PO 4XDP PRN PAIN TEN...[id number].... MAY TAKE ALONG WITH 20MG TAB DUE TO NEW INJURY Polyethylene Glycol 3350 (Miralax) 17 GRAM/DOSE POWDER 17 GM PO DAILY constipation mix with water, juice, soda, coffee or tea use until stools soft and regular Silodosin (Rapaflo) 8 MG CAPSULE 1 CAP PO DAILY PROSTATE (Reported) Terazosin HCl 2 MG CAPSULE 1 CAP PO QPM UNKNOWN (Reported) Triage Nurses Notes Reviewed? yes Onset: Gradual Duration: day(s): Timing: single episode today Severity: moderate Pain/Injury Location: Left: Wrist. Method of Injury: direct blow Modifying Factors: Improves With: rest. Worsens With: movement. Associated Symptoms: left wrist pain HPI: 66-year-old gentleman presents with left wrist pain from home. He states that yesterday he jammed his left wrist against his wheelchair. He presented to the emergency department yesterday. An x-ray at that time was negative. He was sent home. He returns this morning stating that, "I'm just in so much pain and my pain medicine hasn't helped me." He notes that he has pain with movement. He is able to wiggle his fingers. There is minimal swelling. No redness. No lymphangitic streaking. He is otherwise well and has no other concerns. Past History Travel History Traveled to [place] past 21 day No Medical History Any Pertinent Medical History? 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 No Review of Systems Review of Systems Constitutional: Reports: no symptoms. EENTM: Reports: no symptoms. Respiratory: Reports: no symptoms. Cardiovascular: Reports: no symptoms. Gastrointestinal/Abdominal: Reports: no symptoms. Genitourinary: Reports: no symptoms. Musculoskeletal: Reports: no symptoms. Skin: Reports: no symptoms. Neurological/Psychological: Reports: no symptoms. Hematologic/Endocrine: Reports: no symptoms. Immunological: Reports: no symptoms. All Other Systems: Reviewed and Negative Physical Exam Physical Exam General Appearance: well developed/nourished, mild distress Head: atraumatic Eyes: Bilateral: normal appearance. Ears, Nose, Throat: normal pharynx, normal ENT inspection, hearing grossly normal Neck: normal inspection, supple Cardiovascular/Respiratory: regular rate/rhythm Back: normal inspection Hand Left: diffuse pain of left wrist. Range of motion is normal but limited by discomfort. Minimal diffuse swelling. No increased warmth. 2+ distal pulse. Light touch intact., patient able to move fingers without problem. Skin: intact, normal color, warm/dry Lymphatic: no anterior cervical sandra Progress Differential Diagnosis: contusion, fracture, sprain, tendon injury Plan of Care: Splint as noted below. Referral to orthopedics. Diagnostic Imaging: Viewed by Me: Radiology Read. Discussed w/RAD: Radiology Read. Radiology Impression: LEFT WRIST XRAY, 07.21.16... NO FX. FULL REPORT BELOW. Comments: PATIENT: TEA JUAREZ PRESENT AGE: 66 PATIENT ACCOUNT NO: [id number] : 49 LOCATION: [facility] ORDERING PHYSICIAN: ZAFAR FAJARDO SERVICE DATE: 07/21/16 EXAM TYPE: RAD - XRY-HAND, LEFT; XRY-WRIST COMPLETE-LEFT EXAMINATION: XR LEFT WRIST, LEFT HAND CLINICAL INFORMATION: Left hand and wrist pain COMPARISON: None. TECHNIQUE: 4 views of the left wrist. 3 views of the left hand. FINDINGS: Left wrist: Osseous alignment is anatomic. No acute fracture is seen. No significant focal soft tissue abnormality is identified. Left hand: Osseous alignment is anatomic. No acute fracture is seen. No significant focal soft tissue abnormality is identified. IMPRESSION: No acute findings identified in the left wrist or hand. DICTATED BY: TUCKER DESAI MD DATE/TIME DICTATED:07/21/161147 DIRECTOR OF THERAPY SERVICES:IESLA DATE/TIME TRANSCRIBED:07/21/161147 CONFIDENTIAL, DO NOT COPY WITHOUT APPROPRIATE AUTHORIZATION. <Electronically signed in Other Vendor System> SIGNED BY: TUCKER DESAI MD 07/21/161155 Departure Departure Disposition: HOME OR SELF CARE Condition: Stable Clinical Impression Primary Impression: Left wrist sprain Secondary Impressions: Contusion of left wrist Referrals: LETICIA IRAHETA,RICKY Reilly (PCP/Family) Departure Forms: Customer Survey General Discharge Information Prescriptions: Current Visit Scripts Oxycodone HCl 1-2 TAB PO 4XDP PRN PAIN #10 TAB TEN...[id number].... MAY TAKE ALONG WITH 20MG TAB DUE TO NEW INJURY Comments Patient notes that his pain was not resolved with his baseline 20 mg tablets of oxycodone. I wrote for him to have 10 mg tablets to supplement his 20 mg tablets for short-term pain control. I placed in Ortho-Glass splint on his left wrist. I referred him to orthopedics. Given the low risk nature of his injury, I doubt occult fracture. If pain persists, one could consider an outpatient CT scan. Procedures Splinting Location: left wrist Hand-Made Type: orthoglass Splint: wrist Splint Applied By: splint applied by me Pre-Proc Neuro Vasc Exam: normal Post-Proc Neuro Vasc Exam: normal
[2016-07-22] MEDS ORDERED: OXYCODONE HCL10 M2 PO (05:51)
[2016-07-22 07:20] VITALS: BP 123/84
== END 2016-07-22 07:35 ==
LOC: ERH 05:33
DX: S63.502A Unspecified sprain of left wrist, initial encounter (principal); S60.212A Contusion of left wrist, initial encounter; W23.0XXA Caught, crushed, jammed, or pinched between moving objects, initial encounter

== ENCOUNTER 2016-08-14 05:41 | Emergency (ER) | payer OTHER, MEDICARE ==
[~2016-08-14] VITALS: Ht 182.9 cm; Wt 101.6 kg
[~2016-08-14 05:41] MED LIST changes: +OXYCODONE HCL10 M2 PO
--- NOTE | 2016-08-14 05:46 | ED UPPER/LOWER EXTREMITY COMPL ---
History of Present Illness General Chief Complaint: Hand or Wrist Injury Stated Complaint: BIBA LEFT WRIST PAIN Source: patient Exam Limitations: no limitations Vital Signs & Intake/Output Vital Signs & Intake/Output Vital Signs Date Time Temp Pulse Resp B/P Pulse O2 O2 Flow FiO2 Ox Delivery Rate 08/14 0552 97.0 100 18 143/66 96 Nasal 2.0L Cannula Allergies Coded Allergies: aspirin (Severe, HIVES AND RESPIRATORY 07/29/15) Reconcile Medications Albuterol Sulfate (Proair Hfa) 90 MCG HFA.AER.AD 2 PUF INH Q4 HRS NEEDED PRN BREATHING PROBLEMS (Reported) Carvedilol 12.5 MG TABLET 1 TAB PO BID HEART (Reported) Clopidogrel Bisulfate (Clopidogrel) 75 MG TABLET 1 TAB PO DAILY BLOOD THINNER (Reported) Ezetimibe (Zetia) 10 MG TABLET 1 TAB PO DAILY CHOLESTEROL (Reported) Finasteride 5 MG TABLET 1 TAB PO DAILY PROSTATE (Reported) Furosemide 40 MG TABLET 1 TAB PO BID WATER PILL (Reported) Hydromorphone HCl 2 MG TABLET 1 TAB PO TID PAIN (Reported) Insulin Glargine,Hum.rec.anlog (Lantus Solostar) 100 UNIT/ML (3 ML) INSULN.PEN 25 UNIT SC QPM DIABETES (Reported) Oxycodone HCl 20 MG TABLET 1 TAB PO 4 TIMES/DAY PAIN (Reported) Oxycodone HCl 10 MG TABLET 1-2 TAB PO 4XDP PRN PAIN TEN...[id number].... MAY TAKE ALONG WITH 20MG TAB DUE TO NEW INJURY Polyethylene Glycol 3350 (Miralax) 17 GRAM/DOSE POWDER 17 GM PO DAILY constipation mix with water, juice, soda, coffee or tea use until stools soft and regular Silodosin (Rapaflo) 8 MG CAPSULE 1 CAP PO DAILY PROSTATE (Reported) Terazosin HCl 2 MG CAPSULE 1 CAP PO QPM UNKNOWN (Reported) Triage Nurses Notes Reviewed? yes Onset: Gradual Duration: week(s):, waxing and waning Timing: recent history Severity: moderate Pain/Injury Location: Left: Wrist. Method of Injury: unknown Modifying Factors: Improves With: pain medication, rest. Worsens With: movement. Associated Symptoms: stiffness HPI: 66 yo gentleman 02 dependent copd, chronic pain, neuropathy, h/o left wrist sprain, presents with left wrist pain x 1 day, similar to his prior episodes. "Dr. Martinez said that I sprained it..." He notes that he took an extra pain pill, "but I'm not supposed to because I'm in pain management." He notes no new injury, swelling, redness, heat in his left wrist. He is otherwise well. Past History Travel History Traveled to [place] past 21 day No Medical History Any Pertinent Medical History? 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 No Review of Systems Review of Systems Constitutional: Reports: no symptoms. EENTM: Reports: no symptoms. Respiratory: Reports: no symptoms. Cardiovascular: Reports: no symptoms. Gastrointestinal/Abdominal: Reports: no symptoms. Genitourinary: Reports: no symptoms. Musculoskeletal: Reports: no symptoms. Skin: Reports: no symptoms. Neurological/Psychological: Reports: no symptoms. Hematologic/Endocrine: Reports: no symptoms. Immunological: Reports: no symptoms. All Other Systems: Reviewed and Negative Physical Exam Physical Exam General Appearance: well developed/nourished, mild distress Head: atraumatic Eyes: Bilateral: normal appearance. Ears, Nose, Throat: normal pharynx, normal ENT inspection, hearing grossly normal Neck: normal inspection, supple Cardiovascular/Respiratory: regular rate/rhythm Back: normal inspection Hand Left: diffuse tenderness along metaphysis of left radius, no effusion or focal joint pain. negative tinel's, phalen's. no erythema. pain elicited with passive rom. no focal bony tenderness. Skin: intact, normal color, warm/dry Lymphatic: no anterior cervical sandra Progress Differential Diagnosis: contusion, gout, sprain, tendon injury Plan of Care: Current Medications Sig/Tim Start time Last Medication Dose Stop Time Status Admin Hydromorphone HCl 2 MG ONCE ONE 08/14 599 UNVr (Dilaudid) 08/14 600 Diagnostic Imaging: Viewed by Me: Radiology Read. Discussed w/RAD: Radiology Read. Radiology Impression: LEFT WRIST... NO FX... FULL REPORT BELOW. Comments: PATIENT: TEA JUAREZ PRESENT AGE: 66 PATIENT ACCOUNT NO: [id number] : 49 LOCATION: [facility] ORDERING PHYSICIAN: ZAFAR FAJARDO SERVICE DATE: 07/21/16 EXAM TYPE: RAD - XRY-HAND, LEFT; XRY-WRIST COMPLETE-LEFT EXAMINATION: XR LEFT WRIST, LEFT HAND CLINICAL INFORMATION: Left hand and wrist pain COMPARISON: None. TECHNIQUE: 4 views of the left wrist. 3 views of the left hand. FINDINGS: Left wrist: Osseous alignment is anatomic. No acute fracture is seen. No significant focal soft tissue abnormality is identified. Left hand: Osseous alignment is anatomic. No acute fracture is seen. No significant focal soft tissue abnormality is identified. IMPRESSION: No acute findings identified in the left wrist or hand. DICTATED BY: TUCKER DESAI MD DATE/TIME DICTATED:07/21/161147 LAYOUT FORMER:ISELA DATE/TIME TRANSCRIBED:07/21/161147 CONFIDENTIAL, DO NOT COPY WITHOUT APPROPRIATE AUTHORIZATION. <Electronically signed in Other Vendor System> SIGNED BY: TUCKER DESAI MD 07/21/16 1156 Departure Departure Disposition: HOME OR SELF CARE Condition: Stable Clinical Impression Primary Impression: Left wrist sprain Secondary Impressions: Chronic pain Referrals: LETICIA IRAHETA,RICKY Reilly (PCP/Family) Departure Forms: Customer Survey General Discharge Information Comments left wrist splint with orthoglass placed by . advised close follow up with his orthopedist. pt given dilaudid 2mg im.
[2016-08-14 05:52] VITALS: BP 143/66
[2016-08-14] MEDS ORDERED: OXYCODONE HCL10 M2 PO (06:16)
== END 2016-08-14 06:53 ==
LOC: ERH 05:41
DX: S63.502A Unspecified sprain of left wrist, initial encounter (principal); G89.29 Other chronic pain; X58.XXXA Exposure to other specified factors, initial encounter; Y92.9 Unspecified place or not applicable; Y93.9 Activity, unspecified
CPT/HCPCS: 96372

== ENCOUNTER 2016-10-16 19:21 | Emergency (ER) | payer OTHER, MEDICARE ==
[~2016-10-16] VITALS: Ht 180.3 cm; Wt 95.3 kg
--- NOTE | 2016-10-16 19:26 | ED DYSPNEA/ASTHMA COMPLAINT ---
History of Present Illness General Chief Complaint: Dyspnea (COPD, CHF, Other) Stated Complaint: SOB Source: patient, old records, EMS Exam Limitations: no limitations Vital Signs & Intake/Output Vital Signs & Intake/Output Vital Signs Date Time Temp Pulse Resp B/P B/P Pulse O2 O2 Flow FiO2 Mean Ox Delivery Rate 10/16 2034 94 Nasal 3.0L Cannula 10/16 2017 98.2 89 18 153/67 99 Nasal 3.0L Cannula 10/17 2007 98 Room Air 3.0L 10/16 1936 94 Nasal 3.0L Cannula Allergies Coded Allergies: aspirin (Severe, ANAPHYLAXIS 10/16/16) pregabalin (From LYRICA) (N/V 10/16/16) Reconcile Medications Albuterol Sulfate (Proair Hfa) 90 MCG HFA.AER.AD 2 PUF INH Q4 HRS NEEDED PRN BREATHING PROBLEMS (Reported) Azithromycin (Zithromax) 250 MG TABLET 1 DP PO AD BRONCHITIS 2 the first day followed by 1 for days 2-5 Benzonatate (Tessalon Perle) 100 MG CAPSULE 1 CAP PO TID PRN COUGH Carvedilol 12.5 MG TABLET 1 TAB PO BID HEART (Reported) Clopidogrel Bisulfate (Clopidogrel) 75 MG TABLET 1 TAB PO DAILY BLOOD THINNER (Reported) Ezetimibe (Zetia) 10 MG TABLET 1 TAB PO DAILY CHOLESTEROL (Reported) Finasteride 5 MG TABLET 1 TAB PO DAILY PROSTATE (Reported) Furosemide 40 MG TABLET 1 TAB PO BID WATER PILL (Reported) Insulin Glargine,Hum.rec.anlog (Lantus Solostar) 100 UNIT/ML (3 ML) INSULN.PEN 25 UNIT SC QPM DIABETES (Reported) Lorazepam 1 MG TABLET 1 TAB PO DAILY ANXIETY (Reported) Losartan Potassium 25 MG TABLET 1 TAB PO DAILY BP (Reported) Oxycodone HCl 20 MG TABLET 1 TAB PO Q4H PAIN (Reported) Prednisone 10 MG TABLET 1 TAB PO DAILY COPD EXACERBATION TAKE 4 TABS FOR 3 DAYS THEN TAKE 3 TABS FOR 3 DAYS THEN TAKE 2 TABS FOR 3 DAYS THEN TAKE 1 TAB FOR 3 DAYS Ranitidine (Ranitidine HCl) 150 MG TABLET 1 TAB PO BID GI (Reported) Silodosin (Rapaflo) 8 MG CAPSULE 1 CAP PO DAILY PROSTATE (Reported) Terazosin HCl 2 MG CAPSULE 1 CAP PO QPM UNKNOWN (Reported) Triage Note: PT BIBA FROM HOME C/O CONGESTION, NONPRODUCTIVE COUGH AND SOB X4 HOURS. PT BASELINE 3-3.5L NC (HX:COPD). PT RECIEVED DUONEB EN ROUTE. ARRIVES STATING "THAT TREATMENT HELPED ALOT." Triage Nurses Notes Reviewed? yes HPI: Patient brought in by ambulance for increasing shortness of breath or wheezing. Patient denies any chest pain or chest tightness. There is no orthopnea. Patient is O2 dependent COPD. Patient denies any fevers or chills. There is no nausea or vomiting. Positive dyspnea on exertion. Past History Travel History Traveled to [place] past 21 day No Medical History Any Pertinent Medical History? 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 No Review of Systems Review of Systems Constitutional: Reports: no symptoms. EENTM: Reports: no symptoms. Respiratory: Reports: see HPI, cough, short of breath, wheezing. Cardiovascular: Reports: no symptoms. GI: Reports: no symptoms. Genitourinary: Reports: no symptoms. Musculoskeletal: Reports: no symptoms. Skin: Reports: no symptoms. Neurological/Psychological: Reports: no symptoms. Hematologic/Endocrine: Reports: no symptoms. Immunologic/Allergic: Reports: no symptoms. All Other Systems: Reviewed and Negative Physical Exam Physical Exam General Appearance: well developed/nourished, alert, awake, anxious, moderate distress Head: atraumatic, normal appearance Eyes: Bilateral: PERRL, EOMI. Ears, Nose, Throat: normal pharynx, normal ENT inspection Neck: normal inspection, supple, full range of motion, NO JVD Respiratory: decreased breath sounds, wheezing, respiratory distress Cardiovascular: regular rate/rhythm, normal peripheral pulses Gastrointestinal: normal bowel sounds, soft, non-tender, no organomegaly Extremities: normal inspection, normal capillary refill, normal range of motion, pedal edema Neurologic/Psych: no motor/sensory deficits, awake, alert, oriented x 3, normal mood/affect Skin: intact, normal color Lymphatic: no anterior cervical sandra Core Measures ACS in differential dx? No Severe Sepsis Present: No Septic Shock Present: No Progress Differential Diagnosis: AMI, bronchitis, COPD, pulmonary embolism, pneumonia, pneumothorax Plan of Care: Orders Procedure Date/time Status LOWER RESPIRATORY CULTURE 10/16 1957 Active ARTERIAL BLOOD GAS (GEN) 10/16 1925 Active BLOOD CULTURE 10/16 1925 Active TROPONIN LEVEL 10/16 1925 Complete LACTIC ACID 10/16 1925 Complete COMPREHENSIVE METABOLIC PANEL 10/16 1925 Complete CBC WITHOUT DIFFERENTIAL 10/16 1925 Complete EKG 10/16 1925 Active Laboratory Tests 10/16/161957: Anion Gap 7, Estimated GFR 40 L, BUN/Creatinine Ratio 10.6, Glucose 84, Lactic Acid 0.8, Calcium 8.7, Total Bilirubin 0.5, AST 21, ALT 32, Alkaline Phosphatase 97, Troponin I < 0.01, Total Protein 7.4, Albumin 3.5, Globulin 3.9, Albumin/ Globulin Ratio 0.9 L, CBC w Diff NO MAN DIFF REQ, RBC 3.16 L, MCV 95.8 H, MCH 30.8, RDW 16.3 H, MPV 7.4, Gran % 83.8 H, Lymphocytes % 8.3 L, Monocytes % 6.5, Eosinophils % 1.3, Basophils % 0.1, Absolute Granulocytes 6.6 H, Absolute Lymphocytes 0.7 L, Absolute Monocytes 0.5, Absolute Eosinophils 0.1, Absolute Basophils 0, PUBS MCHC 32.2 L 10/16/161929: pH 7.36, pCO2 57 H, pO2 78 L, HCO3 31 H, ABG O2 Sat (Measured) 94.0 L, Carboxyhemoglobin 0.3 L, O2 Concentration % 3L, O2 Delivery Method NC, Phlebotomy Draw Site RIGHT BRACHIAL 10/16/161925: Urine Color Cancelled, Urine Clarity Cancelled, Urine pH Cancelled, Ur Specific [place] Cancelled, Urine Protein Cancelled, Urine Ketones Cancelled, Urine Nitrite Cancelled, Urine Bilirubin Cancelled, Urine Urobilinogen Cancelled, Ur Leukocyte Esterase Cancelled, Ur Microscopic Cancelled, Urine Hemoglobin Cancelled, Urine Glucose Cancelled Microbiology 10/16 2000 LOWER RESP: Respiratory Culture - RES 10/16 2000 LOWER RESP: Gram Stain - RES 10/17 1999 BLOOD: Blood Culture - RECD 10/16 1944 BLOOD: Blood Culture - RECD Diagnostic Imaging: Viewed by Me: Radiology Read. Discussed w/RAD: Radiology Read. CXR Impression: PATIENT: TEA JUAREZ PRESENT AGE: 66 PATIENT ACCOUNT NO: [id number] : 49 LOCATION: [facility] ORDERING PHYSICIAN: PATITO REES MD SERVICE DATE: 10/16/16 EXAM TYPE: RAD - XRY- PORTABLE CHEST XRAY EXAMINATION: XR PORTABLE CHEST CLINICAL INFORMATION: Pneumonia COMPARISON: 11/05/2010 TECHNIQUE: Portable frontal view of the chest was obtained. FINDINGS: The right costophrenic angle is not fully included on this study. The lungs are well expanded. There is no focal consolidation, edema, or effusion. No pneumothorax. The cardiomediastinal silhouette is within normal limits. No acute osseous abnormality. IMPRESSION: Study is limited due to exclusion of the right costophrenic angle. Otherwise clear lungs. DICTATED BY: AMY LLOYD MD DATE/TIME DICTATED:10/16/162005 FIELD TECHNICAL SUPPORT CONSULTANT: ISELA DATE/TIME TRANSCRIBED:10/16/162005 CONFIDENTIAL, DO NOT COPY WITHOUT APPROPRIATE AUTHORIZATION. <Electronically signed in Other Vendor System> SIGNED BY: AMY LLOYD MD 10/16/162014 Initial ED EKG: NSR, no ST T wave changes Prior EKG: unchanged Comments: Patient is doing better. His breathing is better. Reexamination of his lungs he has a very slight expiratory wheezes with better air entry. Patient feels comfortable going home. Departure Departure Disposition: HOME OR SELF CARE Condition: Stable Clinical Impression Primary Impression: COPD exacerbation Referrals: LETICIA IRAHETA,RICKY Reilly (PCP/Family) Additional Instructions: RETURN FOR ANY CONCERNS Departure Forms: Customer Survey General Discharge Information Prescriptions: Current Visit Scripts Azithromycin (Zithromax) 1 DP PO AD #6 TAB 2 the first day followed by 1 for days 2-5 Prednisone 1 TAB PO DAILY #30 TAB TAKE 4 TABS FOR 3 DAYS THEN TAKE 3 TABS FOR 3 DAYS THEN TAKE 2 TABS FOR 3 DAYS THEN TAKE 1 TAB FOR 3 DAYS Benzonatate (Tessalon Perle) 1 CAP PO TID PRN COUGH #30 CAP Critical Care Note Critical Care Note Critical Care Time: non-applicable
--- NOTE | 2016-10-16 20:15 | RADIOLOGY REPORT ---
EXAMINATION: XR PORTABLE CHEST CLINICAL INFORMATION: Pneumonia COMPARISON: 11/05/2010 TECHNIQUE: Portable frontal view of the chest was obtained. FINDINGS: The right costophrenic angle is not fully included on this study. The lungs are well expanded. There is no focal consolidation, edema, or effusion. No pneumothorax. The cardiomediastinal silhouette is within normal limits. No acute osseous abnormality. IMPRESSION: Study is limited due to exclusion of the right costophrenic angle. Otherwise clear lungs.
[2016-10-16 20:18] VITALS: BP 153/67
[2016-10-16 20:22] LABS: ABSOLUTE BASOPHIL COUNT 0 /CUMM (0.0-0.2); ABSOLUTE EOSINOPHIL COUNT 0.1 /CUMM (0.0-0.7); ABSOLUTE GRANULOCYTE CT 6.6 /CUMM (1.4-6.5); ABSOLUTE LYMPH COUNT 0.7 /CUMM (1.2-3.4); ABSOLUTE MONOCYTE COUNT 0.5 /CUMM (0.10-0.60); BASOPHIL % 0.1 % (0.0-2.0); EOSINOPHIL % 1.3 % (0-5); HEMATOCRIT 30.2 % (42-52); MEAN CORPUSCULAR HGB 30.8 PG (27.0-31.0); MEAN CORPUSCULAR HGB CONC 32.2 G/DL (33.0-37.0); MEAN CORPUSCULAR VOLUME 95.8 FL (80.0-94.0); MEAN PLATELET VOLUME 7.4 FL (7.4-10.4); PLATELET COUNT 212 /CUMM (130-400); RBC DISTRIBUTION WIDTH 16.3 % (11.5-14.5); RED BLOOD CELL CT 3.16 /CUMM (4.70-6.10); WHITE BLOOD CELL COUNT 7.8 /CUMM (4.8-10.8)
[2016-10-16 20:23] LABS: GRANULOCYTE % 83.8 % (42.2-75.2)
[2016-10-16] MEDS ORDERED: LOSARTAN POTASS25 M1 PO (20:50)
[2016-10-16] MEDS ORDERED: RANITIDINE HCL150 MG PO (20:50)
[2016-10-16] MEDS ORDERED: LORAZEPAM1 M1 PO (20:50)
[2016-10-16] MEDS ORDERED: TESSALON PERLE100 M1 PO (21:19)
[2016-10-16] MEDS ORDERED: ZITHROMAX250 M2 PO (21:19)
[2016-10-16] MEDS ORDERED: PREDNISONE10 M2 PO (21:19)
[2016-11-17] MEDS ORDERED: DOCUSATE SODIU1 EACH PO (04:12)
== END 2016-10-16 22:03 ==
LOC: ERH 19:21
PROVIDERS: Emergency Medicine
DX: J44.1 Chronic obstructive pulmonary disease with (acute) exacerbation (principal)
CPT/HCPCS: 1263; 87040; 87070; 93005; 93010; 96365; 96366; 96375; J0456; J0696; J2930; J7040

== ENCOUNTER 2016-11-25 18:34 | Inpatient (IN) | payer OTHER, MEDICARE ==
[~2016-11-25] VITALS: Ht 182.9 cm; Wt 93.4 kg
[~2016-11-25 18:34] MED LIST changes: +DOCUSATE SODIU1 EACH PO; +LORAZEPAM1 M1 PO; +LOSARTAN POTASS25 M1 PO; +PREDNISONE10 M2 PO; +RANITIDINE HCL150 MG PO; +TESSALON PERLE100 M1 PO; +ZITHROMAX250 M2 PO
--- NOTE | 2016-11-25 18:50 | NUR ---
PT BIBA FROM HOME A&O X 4, O2 NC 4L AT BASELINE, O2SAT 96%. C/O OF PAIN TO BILATERALL LOWER EXTREMITIES 2/2 CELLULITIS RATING 9/[address]. DRESSING IS SOAKED WITH DISCHARGE FROM WOUNDS. PER PT MULTIPLE WOUNDS TO BLE. REDNESS NOTED TO LLE ABOVE THE DRESSING. PT DENIES SOB, CHEST PAIN, ABDOMINAL PAIN. VSS.
[2016-11-25 18:58] LABS: ABSOLUTE BASOPHIL COUNT 0 /CUMM (0.0-0.2); ABSOLUTE EOSINOPHIL COUNT 0 /CUMM (0.0-0.7); ABSOLUTE GRANULOCYTE CT 12.9 /CUMM (1.4-6.5); ABSOLUTE LYMPH COUNT 0.6 /CUMM (1.2-3.4); ABSOLUTE MONOCYTE COUNT 0.5 /CUMM (0.10-0.60); BASOPHIL % 0 % (0.0-2.0); EOSINOPHIL % 0.1 % (0-5); HEMATOCRIT 25.8 % (42-52); MEAN CORPUSCULAR HGB 30.8 PG (27.0-31.0); MEAN CORPUSCULAR HGB CONC 32.3 G/DL (33.0-37.0); MEAN CORPUSCULAR VOLUME 95.4 FL (80.0-94.0); MEAN PLATELET VOLUME 6.9 FL (7.4-10.4); PLATELET COUNT 295 /CUMM (130-400); RBC DISTRIBUTION WIDTH 15.7 % (11.5-14.5)
[2016-11-25 19:03] LABS: GRANULOCYTE % 92.4 % (42.2-75.2)
--- NOTE | 2016-11-25 19:05 | ED UPPER/LOWER EXTREMITY COMPL ---
History of Present Illness General Chief Complaint: Lower Extremity Problems Stated Complaint: BIBA FOR CELLULITIS Source: patient, old records Exam Limitations: no limitations Vital Signs & Intake/Output Vital Signs & Intake/Output Vital Signs Date Time Temp Pulse Resp B/P B/P Pulse O2 O2 Flow FiO2 Mean Ox Delivery Rate 11/25 2024 95 Nasal 3.5L Cannula 11/26 1839 98.2 102 18 135/74 98 Room Air Allergies Coded Allergies: aspirin (Severe, ANAPHYLAXIS 10/16/16) pregabalin (From LYRICA) (N/V 10/16/16) Reconcile Medications Albuterol Sulfate (Proair Hfa) 90 MCG HFA.AER.AD 2 PUF INH Q4 HRS NEEDED PRN BREATHING PROBLEMS (Reported) Carvedilol 12.5 MG TABLET 1 TAB PO BID HEART (Reported) Clopidogrel Bisulfate (Clopidogrel) 75 MG TABLET 1 TAB PO DAILY BLOOD THINNER (Reported) Ezetimibe (Zetia) 10 MG TABLET 1 TAB PO DAILY CHOLESTEROL (Reported) Finasteride 5 MG TABLET 1 TAB PO DAILY PROSTATE (Reported) Furosemide 40 MG TABLET 1 TAB PO BID WATER PILL (Reported) Insulin Glargine,Hum.rec.anlog (Lantus Solostar) 100 UNIT/ML (3 ML) INSULN.PEN 25 UNIT SC QPM DIABETES (Reported) Lorazepam 1 MG TABLET 1 TAB PO DAILY ANXIETY (Reported) Losartan Potassium 25 MG TABLET 1 TAB PO DAILY BP (Reported) Oxycodone HCl 20 MG TABLET 1 TAB PO Q4H PAIN (Reported) Ranitidine (Ranitidine HCl) 150 MG TABLET 1 TAB PO BID GI (Reported) Sennosides/Docusate Sodium (Docusate Sodium-Senna Tablet) 8.6 MG-50 MG TABLET 1 TAB PO DAILY constipation Silodosin (Rapaflo) 8 MG CAPSULE 1 CAP PO DAILY PROSTATE (Reported) Terazosin HCl 2 MG CAPSULE 1 CAP PO QPM UNKNOWN (Reported) Triage Note: PT BIBA FROM HOME FOR BLE CELLULITIS. SEE NOTE. Triage Nurses Notes Reviewed? 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 PATIENT'S LEGS HAVE COMPRESSION WRAPS, LEFT LEG HAS WARM, TENDER ERYTHEMA EXTENDING ALONG ANTERIOR KNEE AND LATERAL THIGH. PATIENT FEELS WELL OTHERWISE, DENYING FEVER, CHILLS. HE DOES REPORT INCREASED PAIN IN THE LEFT LEG. PATIENT FOLLOWS AT [facility] WITH DR. HERRERA. (VON GARCIA MD) Past History Travel History Traveled to [place] past 21 day No Medical History Any Pertinent Medical History? 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 No (VON GARCIA MD) Review of Systems Review of Systems Constitutional: Reports: no symptoms. EENTM: Reports: no symptoms. Respiratory: Reports: no symptoms. Cardiovascular: Reports: no symptoms. Gastrointestinal/Abdominal: Reports: no symptoms. Genitourinary: Reports: no symptoms. Musculoskeletal: Reports: see HPI. Skin: Reports: no symptoms. Neurological/Psychological: Reports: no symptoms. Hematologic/Endocrine: Reports: no symptoms. Immunological: Reports: no symptoms. All Other Systems: Reviewed and Negative (VON GARCIA MD) Physical Exam Physical Exam General Appearance: well developed/nourished, mild distress Head: atraumatic Eyes: Bilateral: normal appearance. Ears, Nose, Throat: normal pharynx, normal ENT inspection, hearing grossly normal Neck: normal inspection, supple Cardiovascular/Respiratory: regular rate/rhythm Back: normal inspection Leg Left: WEEPING CHRONIC STASIS WITH ERYTHEMA EXTENDING ALONG ANTERIOR AND LATERAL KNEE AND THIGH ON THE LEFT LEG. RIGHT LEG NO ACUTE Skin: intact, normal color, warm/dry Lymphatic: no anterior cervical sandra (VON GARCIA MD) Progress Differential Diagnosis: arterial insufficiency, cellulitis, CHF, compartment syndrome, contusion, dislocation, DVT, fracture, gout, septic arthritis, sprain, tendon injury Plan of Care: Orders Procedure Date/time Status Heart Healthy Diet 07/02 B Active Intake & Output 11/25 2013 Active Patient Data 11/26 1999 Active Admit to inpatient 11/25 1956 Active Vital Signs 11/25 1956 Active Code Status 11/25 1956 Active BLOOD CULTURE 11/26 1847 Active PARTIAL THROMBOPLASTIN TIME 11/26 1847 Complete PROTHROMBIN TIME 11/25 184 Complete LACTIC ACID 11/26 1847 Complete COMPREHENSIVE METABOLIC PANEL 11/26 1847 Complete CBC WITHOUT DIFFERENTIAL 11/26 1847 Complete Laboratory Tests 11/25/16 185: Anion Gap 9, Estimated GFR 33 L, BUN/Creatinine Ratio 16.5, Glucose 108 H, Lactic Acid 0.9, Calcium 8.9, Total Bilirubin 1.0, AST 83 H, ALT 88 H, Alkaline Phosphatase 138 H, Total Protein 6.4, Albumin 3.0 L, Globulin 3.4, Albumin/Globulin Ratio 0.9 L, PT 13.4 H, INR 1.28 H, APTT 33, CBC w Diff NO MAN DIFF REQ, RBC 2.70 L, MCV 95.4 H, MCH 30.8, RDW 15.7 H, MPV 6.9 L, Gran % 92.4 H, Lymphocytes % 4.1 L, Monocytes % 3.4, Eosinophils % 0.1, Basophils % 0 L, Absolute Granulocytes 12.9 H, Absolute Lymphocytes 0.6 L, Absolute Monocytes 0.5, Absolute Eosinophils 0, Absolute Basophils 0, PUBS MCHC 32.3 L Microbiology 11/25 1944 BLOOD: Blood Culture - RECD 11/25 1849 BLOOD: Blood Culture - RECD Departure Departure Disposition: STILL A PATIENT Condition: Stable Clinical Impression Primary Impression: Cellulitis of left lower extremity Secondary Impressions: Tecll-dr-ewigfvr kidney injury, Anemia, Leukocytosis Referrals: LETICIA IRAHETA,RICKY Reilly (PCP/Family) Departure Forms: Customer Survey General Discharge Information Admission Note Spoke With: AARON IRAHETA,UYEN Documentation of Exam: Documentation of any treatments & extenuating circumstances including Concerns Regarding Discharge (functional status, medication knowledge or non-compliance, living conditions, etc.) that warrant an admission rather than observation: BILATERAL STASIS DERMATITIS WITH LEFT UPPER LEG CELLULITIS THAT IS WARM AND TENDER, LEUKOCYTOSIS, ANEMIA WITH UNKNOWN ETIOLOGY, ACUTE ON CHRONIC KIDNEY INJURY. (RADHA IRAHETA,VON)
[2016-11-25 19:07] LABS: PT 13.4 SEC (9.4-12.5); PTT 33 SEC (25-37)
--- NOTE | 2016-11-25 19:52 | NUR ---
MORPHINE 4MG IV ADMINISTERED ORDERED
--- NOTE | 2016-11-25 20:21 | NUR ---
Emergency Dept [facility] Admit Note: To be admitted to [facility] by DR WALKER with CELLULITIS as the diagnosis, to [facility] location. Nursing Hat Marker and admitting notified 11/25/16 at 2006 PT WILL GO TO ROOM [phone]
--- NOTE | 2016-11-25 20:42 | History & Physical ---
ZULEIMA IRAHETA,[facility] 11/25/162040: General Information and HPI MD Statement: I have seen and personally examined TEA JUAREZ and documented this H&P. The patient is a 66 year old M who presented with a patient stated chief complaint of []. Source of Information: patient History of Present Illness: Patient 66-year-old male with past history of diabetes, bilateral venous stasis with dermatitis, recurrent lower extremity cellulitis, peripheral neuropathy, CAD, and HTN presenting with increasing erythema of his left leg. The patient states he gets his wound dressed every 2 days by visiting nurse. Yesterday the nurse noticed that there was increased redness of his left leg after changing his dressing. She described as raging cellulitis of the left leg. The erythema is mostly located at the left anterior knee extending into the lateral thigh. His wound care is managed by Dr. Patterson. The patient also notes pain in his right leg which was relieved after removal of dressing. The patient denies any fevers or chills. The patient denies nausea, vomiting, chest pain, palpitations , or shortness of breath. Allergies/Medications Allergies: Coded Allergies: aspirin (Severe, ANAPHYLAXIS 10/16/16) pregabalin (From LYRICA) (N/V 10/16/16) Home Med list Albuterol Sulfate (Proair Hfa) 90 MCG HFA.AER.AD 2 PUF INH Q4 HRS NEEDED PRN BREATHING PROBLEMS (Reported) Carvedilol 12.5 MG TABLET 1 TAB PO BID HEART (Reported) Clopidogrel Bisulfate (Clopidogrel) 75 MG TABLET 1 TAB PO DAILY BLOOD THINNER (Reported) Ezetimibe (Zetia) 10 MG TABLET 1 TAB PO DAILY CHOLESTEROL (Reported) Finasteride 5 MG TABLET 1 TAB PO DAILY PROSTATE (Reported) Furosemide 40 MG TABLET 1 TAB PO BID WATER PILL (Reported) Insulin Glargine,Hum.rec.anlog (Lantus Solostar) 100 UNIT/ML (3 ML) INSULN.PEN 25 UNIT SC QPM DIABETES (Reported) Lorazepam 1 MG TABLET 1 TAB PO DAILY ANXIETY (Reported) Losartan Potassium 25 MG TABLET 1 TAB PO DAILY BP (Reported) Oxycodone HCl 20 MG TABLET 1 TAB PO Q4H PAIN (Reported) Ranitidine (Ranitidine HCl) 150 MG TABLET 1 TAB PO BID GI (Reported) Sennosides/Docusate Sodium (Docusate Sodium-Senna Tablet) 8.6 MG-50 MG TABLET 1 TAB PO DAILY constipation Silodosin (Rapaflo) 8 MG CAPSULE 1 CAP PO DAILY PROSTATE (Reported) Terazosin HCl 2 MG CAPSULE 1 CAP PO QPM UNKNOWN (Reported) Compliance With Home Meds: GOOD Past History Travel History Traveled to [place] past 21 day No Medical History Neurological: peripheral neuropathy EENT: NONE Cardiovascular: hypertension, hyperlipidemia Respiratory: COPD, O2 DEPENDANT 3.5L Gastrointestinal: NONE Hepatic: NONE Renal: NONE Musculoskeletal: NONE Psychiatric: NONE Endocrine: diabetes Blood Disorders: NONE Cancer(s): NONE INSTRUCTIONAL MANAGER/Reproductive: NONE Other Medical Hx: hematuria, BPH History of MRSA: No History of VRE: No History of CDIFF: No Surgical History Surgical History: none Past Family/Social History Family History Relations & Conditions if any Relation not specified for: FH: stroke Psychosocial History Services at Home: None Review of Systems Review of Systems Constitutional: Reports: no symptoms. Cardiovascular: Reports: no symptoms. Respiratory: Reports: no symptoms. GI: Reports: no symptoms. Genitourinary: Reports: no symptoms. Skin: Reports: erythema. Exam & Diagnostic Data Last 24 Hrs of Vital Signs/I&O Vital Signs Date Time Temp Pulse Resp B/P B/P Pulse O2 O2 Flow FiO2 Mean Ox Delivery Rate 11/26 0133 98.4 90 20 110/50 07 0016 98.4 90 20 110/50 99 Nasal 3.0L Cannula 11/26 0000 98 Nasal 3.0L Cannula 11/25 2056 97.3 81 18 122/56 96 Nasal 3.5L Cannula 11/25 2024 95 Nasal 3.5L Cannula 11/26 1839 98.2 102 18 135/74 98 Room Air Intake & Output 11/26 0800 11/26 0000 11/25 1600 Intake Total 450 Output Total Balance 450 Intake, IV 100 Intake, Oral 350 Patient 206 lb Weight Weight Reported by Patient Measurement Method Physical Exam General Appearance Alert, Oriented X3, Cooperative HEENT Atraumatic, PERRLA Cardiovascular Regular Rate, Normal S1, Normal S2, No Murmurs Lungs Clear to Auscultation Abdomen Normal Bowel Sounds, Soft, No Tenderness Extremities LLE erythema of the left knee extending up lateral thigh and lower leg Last 24 Hrs of Labs/Ryder: Laboratory Tests 11/25/168: Lactic Acid Cancelled 11/25/161849: Anion Gap 9, Estimated GFR 33 L, BUN/Creatinine Ratio 16.5, Glucose 108 H, Lactic Acid 0.9, Calcium 8.9, TIBC 207 L, Ferritin 381.0, Total Bilirubin 1.0, AST 83 H, ALT 88 H, Alkaline Phosphatase 138 H, Total Protein 6.4, Albumin 3.0 L, Globulin 3.4, Albumin/Globulin Ratio 0.9 L, Vitamin B12 215 L, Folate 5.2, PT 13.4 H, INR 1.28 H, APTT 33, CBC w Diff NO MAN DIFF REQ, RBC 2.70 L, MCV 95.4 H, MCH 30.8, RDW 15.7 H, MPV 6.9 L, Gran % 92.4 H, Lymphocytes % 4.1 L, Monocytes % 3.4, Eosinophils % 0.1, Basophils % 0 L, Absolute Granulocytes 12.9 H, Absolute Lymphocytes 0.6 L, Absolute Monocytes 0.5, Absolute Eosinophils 0, Absolute Basophils 0, PUBS MCHC 32.3 L Microbiology 11/26 020 LOWER RESP: Respiratory Culture - CAN Cancelled: Cancelled via OE: Per MD Decision 11/26 202 LOWER RESP: Gram Stain - CAN Cancelled: Cancelled via OE: Per MD Decision 11/25 1944 BLOOD: Blood Culture - RECD 11/25 1849 BLOOD: Blood Culture - RECD Assessment/Plan Assessment: A: Patient 66-year-old male with past history of diabetes, bilateral venous stasis with dermatitis, recurrent lower extremity cellulitis, peripheral neuropathy, CAD, and HTN presenting with cellulitis of LLE and slightly macrocytic anemia. 1. Cellulitis Patient has a history of diabetes, bilateral venous stasis dermatitis, recurrent lower extremity cellulitis. The visiting nurse who changes the patient dressings noted increasing erythema of his LLE. The erythema is mostly located at the left anterior knee extending into the lateral thigh. His wound care is managed by Dr. Patterson. The patient needs daily dressing with xeroform. The patient denies any systemic symptoms. Patient was started on Unasyn. Follow up with wound consult. This patient should be managed as prescribed. Panculture needs to be followed up. -Continue Unasyn -f/u wound consult. -daily dressings with xeroform -f/u panculture -pain management with oxycodone 2. Macrocytic anemia Patient was found to have macrocytic anemia. We have ordered serum iron, ferritin, TIBIC, b12, folate, TSH, and stool guiacs. We will ask about his colonoscopy history tomorrow. -f/u anemia labs -ask about colonoscopy history 3. Transaminitis of unclear etiology Transaminitis possibly in the setting of active infection. We will need to trend LFTs. -Trend LFTs 4. Diabetes We have placed him on a sliding scale and will maintain blood sugar between 120- 140. -continue monitor glucose levels 5. Lower extremity edema His lower extremity edema stable. We'll continue him on his home medications. -continue lasix 40mg bid 6. HTN His HTN is stable. We'll continue him on his home medications. -continue home medications 7. CAD His CAD is stable. We'll continue him on his home medications. -continue home medications As Ranked By This Provider Problem List: 1. Cellulitis 2. Anemia 3. Diabetes 4. Bilateral lower extremity edema 5. HTN (hypertension) 6. CAD (coronary artery disease) Core Measures/Miscellaneous Acute Coronary Syndrome ACS Diagnosis: No Cerebrovascular Accident CVA/TIA Diagnosis: No Congestive Heart Failure CHF Diagnosis: No VTE (View Protocol) VTE Risk Factors: Acute medical illness, Age > 40 [facility] d/t: VTE low risk No VTE Pharm Prophylaxis d/t: VTE low risk VTE Diagnosis: No VTE Type: NONE VTE Confirmed by (Test): NONE Sepsis (View Protocol) Severe Sepsis Present: No Septic Shock Septic Shock Present: No Miscellaneous Documentation Attending Case Discussed With: UYEN WALKER MD Primary Care Physician: RICKY KELLY MD Patient sees these Specialists Unknown Level of Patient Care: General Medicine MAGALY CURRIE MD 11/25/16 2224: Resident Review Statement Resident Statement: examined this patient, discussed with internet sales representative Other Findings: H:Mr Juarez is a a 66-year-old gentleman with past medical history of COPD on home oxygen 3 L, diabetes, hypertension, CKD stage III B, chronic venous stasis and who follows up with wound care center at [facility] who was sent into the emergency department by visiting nurse on due to development of worsening of left leg pain. Patient has a history of chronic leg wounds which are normally changed by visiting nurse every 48 hours. 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 He has continued to experience worsening left leg pain and discomfort. Pain and discomfort is located on the left patellar and left thigh area. Pain is rated an 8 out of 10 in severity. Patient also endorses pain in right lower extemity. ROS:At the time of our clinical interaction he denied: any fever, chills, nausea , vomiting. E: Physical Examination: V: Temperature 98.2, pulse 102, respiration 18, blood pressure 135/74, saturating 98% on room air. General Appearance: AOX3 Head: atraumatic Eyes:PERRLA, EOMI Ears, Nose, Throat: normal pharynx, normal ENT inspection, hearing grossly normal Neck: normal inspection, supple, No lymphadenopathy Cardiovascular: regular rate/rhythm Respiratory: Quiet Respiration Abdomen: BS+. Non Tender. Abdominal Wall distended. LLE: Erythema extending to the left thigh. Bilateral lower foot edema. Sensation intact. Bilaterral Lower extemity wrapped in bandage. L: Labs at the time of admission were: WBC 14, H&H 8.3 and 25.8 respectively, platelets 295. Sodium 140, potassium 4.5, BUN/creatinine 33 and 2.0 respectively. Chloride and bicarbonate 96 and 35. A/P: Mr Juarez is a a 66-year-old gentleman with past medical history of diabetes who presented to the emergency department with left lower extremity pain, liley caused by cellulitis. His right lower extremity pain has likely been caused by decreased blood supply due to the way the banadage was wrapped. We will admit the patient to general medicine, for additional management. #Cellulitis: Cefazolin 1000 mg IV every 8. Continue leg elevation bilaterally. Monitor CBC in a.m. Wound care consult in a.m. Follow up blood cultures. #Diabetes. We will hold the patients home medications and begin him on a sliding scale. Maintain blood sugar between 120- 140. Patient's blood sugar remains uncontrolled will may consider endocrinology consultation in a.m. #History of lower extremity edema. Continue Lasix 40 mg twice a day. May consdier IV lasix if not responsive to PO Lasix. Monitor Is and Os. #Anemia Patient H&H 8.3 and 25.8 is low for patient. Unsure whether he's had any GI workup. May consider GI consultation if continues to fall. Monitor CBC in a.m. TIBC, ferritin, B12, folate. Based on iron studies, picture looks like: Anemia of chronic Inflamation. #Transaminitis Likely multifactorial. Repeat level in a.m. #Hypertension Continue patient on home medications. Laurence Almaraz #History of anxiety Lorazepam 1 mg daily. #DVT prophylaxis heparin subcutaneous Code Full code AARON IRAHETA, [facility] 11/26/16 0120: Attending MD Review Statement Attending Statement Attending MD Statement: examined this patient, discuss w/resident/PA/DIRECTOR OF CASEWORK DEPARTMENT, agreed w/resident/PA/DIRECTOR OF CASEWORK DEPARTMENT Attending Assessment/Plan: 66 yo M with h/o end stage COPD on 3L, chronic hypoxic respiratory failure, bladder cancer s/p TURBT, DM with neuropathy, HTN, CKD stage 3B, BPH, KIRT, chronic LE wounds, edema with venous stasis (follows Dr. Woodward), KIRT, who was sent in by visiting nurse for evaluation of pain in b/l LE and left lower extremity erythema. Dressing changed on Sunday by visiting nurse, and within 24 hours patient reports development of erythema and swelling over left anterior thigh extending upwards. He reports pain in RLE worse than LLE. VSS. Bilateral LE: soaked dressings were removed. Foot is edematous, black eschar noted to plantar surface of left foot, bilateral legs with chronic venous stasis, LLE (knee upwards) is warm, with erythema and swelling. Multiple open areas oozing clear fluid. Labs: WBC 14, H/H 8.3/25.8 (9.5-11/ 30-35), Plt 295, INR 1.28, bicarb 35, BUN 33, creat 2.0 (baseline 1.6-2.0), AST 83, ALT 88, lactic acid 0.9. 1. Left lower extremity (thigh) cellulitis in this patient with underlying chronic LE wounds, edema and venous stasis. GM admit, elevate LE, panculture, IV Cefazolin, Wound consult with Dr. Woodward, needs daily dressing with xeroform, continue lasix BID. No need for LE dopplers, low concern for DVT. His RLE dressing was extremely tight causing him pain, this resolved once we removed his dressing. Pain management with oxycodone. 2. Normocytic to macrocytic anemia ?likely anemia of chronic disease. Guaiac all stools, check serum iron, TIBC, ferritin, TSH, B12 and folic acid. Goal Hb > 7.0. 3. Transaminitis of unclear etiology, possibly in the setting of active infection. Please trend LFTs. 4. CKD stage 3 B. Stable. DVT ppx Hep SC. Full code. Please confirm CMR in AM and resume home meds.
--- NOTE | 2016-11-25 20:48 | NUR ---
REPORT GIVEN TO JOSE LUIS RN ON 2NB FOR BED 217
--- NOTE | 2016-11-25 21:04 | NUR ---
TRANSPORT HERE FOR PT
--- NOTE | 2016-11-25 21:06 | NUR ---
PT TRANSPORTED OFF UNIT TO [facility] IN STABLE CONDITION
[2016-11-26 00:16] VITALS: BP 110/50
--- NOTE | 2016-11-26 01:21 | Admission Certification ---
Admission Certification Certification Statement - As attending physician, I certify that at the time of - admission, based on clinical presentation, severity of - symptoms, need for further diagnostic testing and - therapeutic interventions, and risk of adverse outcomes - without in-hospital treatment, in my clinical assessment, - this patient requires an acute hospital stay for a minimum - of two nights or longer. I have also considered psychsocial - factors such as support system, advanced age, financial - issues, cognitive issues, and failed out-patient treatments, - past re-admission history, safety of patient, and lack of - compliance as applicable. Specific rationale supporting this admission is: Left lower extremity cellulitis.
--- NOTE | 2016-11-26 05:17 | NUR ---
LATE ENTRY: 2129 PT ARRIVED TO FLOOR VIA STRETCHER WITH DISTRIBUTION STAFF. A/OX3, 3.5 L O2, SOB. WC DEPENDENT, ABLE TO STAND BY THE EDGE OF THE BED. BLE DRESSING SATURATED WITH DRAINAGE. OLD DRESSING REMOVED. R LEG 3+EDEMA, L LEG 2+. BLE WITH MULTIPLE OPEN AREAS. SOLE OF THE L FOOT WITH NECROTIC AREAS SEE SKIN MAN. PT C/O PAIN 01/04. CONTRACTS ATTORNEY PAMELA AND RESIDENT MAGALY CURRIE IN TO ASSESS PT. CALL ACEVES IN REACH. WILL CONTINUE TO MONITOR.
[2016-11-26 07:06] VITALS: BP 106/61
[2016-11-26 08:43] LABS: ABSOLUTE BASOPHIL COUNT 0 /CUMM (0.0-0.2); ABSOLUTE EOSINOPHIL COUNT 0 /CUMM (0.0-0.7); ABSOLUTE GRANULOCYTE CT 8.8 /CUMM (1.4-6.5); ABSOLUTE LYMPH COUNT 0.5 /CUMM (1.2-3.4); ABSOLUTE MONOCYTE COUNT 0.5 /CUMM (0.10-0.60); BASOPHIL % 0 % (0.0-2.0); EOSINOPHIL % 0.3 % (0-5); GRANULOCYTE % 89.9 % (42.2-75.2); HEMATOCRIT 25.5 % (42-52); MEAN CORPUSCULAR HGB 31.1 PG (27.0-31.0); MEAN CORPUSCULAR HGB CONC 32.7 G/DL (33.0-37.0); MEAN PLATELET VOLUME 7.7 FL (7.4-10.4); PLATELET COUNT 272 /CUMM (130-400); RBC DISTRIBUTION WIDTH 15.8 % (11.5-14.5); RED BLOOD CELL CT 2.69 /CUMM (4.70-6.10)
[2016-11-26 10:25] LABS: WHITE BLOOD CELL COUNT 9.8 /CUMM (4.8-10.8)
--- NOTE | 2016-11-26 11:22 | PN- Att Addend ---
Attending Addendum Attending Brief Note Patient seen and examined. Plan of care discussed with the medical team and the patient. Available lab work and radiology test reports were reviewed. Patient is sitting in chair. He denies any difficulty breathing chest pain fever or chills. He complains of mild to moderate neck discomfort. Overall he appears better than yesterday. Vital Signs Date Time Temp Pulse Resp B/P B/P Pulse O2 O2 Flow FiO2 Mean Ox Delivery Rate 11/26 1058 Nasal 3.0L Cannula 11/26 1057 95 Nasal 3.0L Cannula 11/26 0853 112/60 11/26 0853 112/60 11/26 0706 98.0 83 20 106/61 98 Nasal 3.0L Cannula 11/26 0133 98.4 90 20 110/50 11/26 0016 98.4 90 20 110/50 99 Nasal 3.0L Cannula 11/26 0000 98 Nasal 3.0L Cannula 11/25 2056 97.3 81 18 122/56 96 Nasal 3.5L Cannula 11/25 2024 95 Nasal 3.5L Cannula 11/25 1840 98.2 102 18 135/74 98 Room Air Intake & Output 11/26 1600 11/26 0800 11/26 0000 Intake Total 450 450 Output Total 300 Balance 150 450 Intake, IV 100 Intake, Oral 450 350 Output, Urine 300 Patient 206 lb Weight Weight Reported by Patient Measurement Method Exam: General: Patient awake alert oriented without any distress CVS: S1 plus S2 without any murmur or gallops Chest: Few scattered crepitation without any wheeze. There is no respiratory distress. Abdomen: Soft nontender, bowel sound present, no guarding or rebound CONSOLE MANAGER: Awake alert oriented without any focal neuro deficit and follows command appropriately Extremities: Left leg is covered in dressing.; Left leg is hyperemic especially below the knee area however area of redness has decreased; bilateral edema and skin scaling and changes of chronic venous stasis a noted Laboratory Tests 11/26 11/26 11/25 0790 [id number] Chemistry Sodium (137 - 145 mmol/L) 141 Potassium (3.5 - 5.1 mmol/L) 4.1 Chloride (98 - 107 mmol/L) 96 L Carbon Dioxide (22 - 30 mmol/L) 36 H Anion Gap (5 - 16) 9 BUN (9 - 20 mg/dL) 33 H Creatinine (0.7 - 1.2 mg/dL) 1.8 H Estimated GFR (>60 ml/min) 38 L BUN/Creatinine Ratio (7 - 25 %) 18.3 Lactic Acid Cancelled Total Bilirubin Pending Direct Bilirubin Pending AST Pending ALT Pending Alkaline Phosphatase Pending Total Protein Pending Albumin Pending Hematology CBC w Diff NO MAN DIFF REQ WBC (4.8 - 10.8 /CUMM) 9.8 RBC (4.70 - 6.10 /CUMM) 2.69 L Hgb (14.0 - 18.0 G/DL) 8.4 L Hct (42 - 52 %) 25.5 L MCV (80.0 - 94.0 FL) 95.0 H MCH (27.0 - 31.0 PG) 31.1 H RDW (11.5 - 14.5 %) 15.8 H Plt Count (130 - 400 /CUMM) 272 MPV (7.4 - 10.4 FL) 7.7 Gran % (42.2 - 75.2 %) 89.9 H Lymphocytes % (20.5 - 51.1 %) 4.6 L Monocytes % (1.7 - 9.3 %) 5.2 Eosinophils % (0 - 5 %) 0.3 Basophils % (0.0 - 2.0 %) 0 L Absolute Granulocytes (1.4 - 6.5 /CUMM) 8.8 H Absolute Lymphocytes (1.2 - 3.4 /CUMM) 0.5 L Absolute Monocytes (0.10 - 0.60 /CUMM) 0.5 Absolute Eosinophils (0.0 - 0.7 /CUMM) 0 Absolute Basophils (0.0 - 0.2 /CUMM) 0 PUBS MCHC (33.0 - 37.0 G/DL) 32.7 L 11/25 1850 Chemistry Sodium (137 - 145 mmol/L) 140 Potassium (3.5 - 5.1 mmol/L) 4.5 Chloride (98 - 107 mmol/L) 96 L Carbon Dioxide (22 - 30 mmol/L) 35 H Anion Gap (5 - 16) 9 BUN (9 - 20 mg/dL) 33 H Creatinine (0.7 - 1.2 mg/dL) 2.0 H Estimated GFR (>60 ml/min) 33 L BUN/Creatinine Ratio (7 - 25 %) 16.5 Glucose (65 - 99 mg/dL) 108 H Lactic Acid (0.7 - 2.1 mmol/L) 0.9 Calcium (8.4 - 10.2 mg/dL) 8.9 Iron (49 - 181 ug/dL) 13 L TIBC (261 - 462 ug/dL) 207 L Ferritin (17.9 - 464 ng/mL) 381.0 Total Bilirubin (0.2 - 1.3 mg/dL) 1.0 AST (17 - 59 U/L) 83 H ALT (21 - 72 U/L) 88 H Alkaline Phosphatase (< 127 U/L) 138 H Total Protein (6.3 - 8.2 g/dL) 6.4 Albumin (3.5 - 5.0 g/dL) 3.0 L Globulin (1.9 - 4.2 gm/dL) 3.4 Albumin/Globulin Ratio (1.1 - 2.2 %) 0.9 L Vitamin B12 (239 - 931 pg/mL) 215 L Folate (2.76 - 20.0 ng/mL) 5.2 TSH (0.270 - 4.200 uIU/mL) 0.738 Free T4 (0.78 - 2.44 ng/dL) 1.38 Coagulation PT (9.4 - 12.5 SEC) 13.4 H INR (0.90 - 1.17) 1.28 H APTT (25 - 37 SEC) 33 Hematology CBC w Diff NO MAN DIFF REQ WBC (4.8 - 10.8 /CUMM) 14.0 H RBC (4.70 - 6.10 /CUMM) 2.70 L Hgb (14.0 - 18.0 G/DL) 8.3 L Hct (42 - 52 %) 25.8 L MCV (80.0 - 94.0 FL) 95.4 H MCH (27.0 - 31.0 PG) 30.8 RDW (11.5 - 14.5 %) 15.7 H Plt Count (130 - 400 /CUMM) 295 MPV (7.4 - 10.4 FL) 6.9 L Gran % (42.2 - 75.2 %) 92.4 H Lymphocytes % (20.5 - 51.1 %) 4.1 L Monocytes % (1.7 - 9.3 %) 3.4 Eosinophils % (0 - 5 %) 0.1 Basophils % (0.0 - 2.0 %) 0 L Absolute Granulocytes (1.4 - 6.5 /CUMM) 12.9 H Absolute Lymphocytes (1.2 - 3.4 /CUMM) 0.6 L Absolute Monocytes (0.10 - 0.60 /CUMM) 0.5 Absolute Eosinophils (0.0 - 0.7 /CUMM) 0 Absolute Basophils (0.0 - 0.2 /CUMM) 0 PUBS MCHC (33.0 - 37.0 G/DL) 32.3 L Microbiology Date/Time Procedure - Status Source Growth 11/27 611 Urine Culture - COLB URINE ROUT 11/26 202 Respiratory Culture - CAN LOWER RESP Cancelled: Cancelled via OE: Per Decision 11/26 202 Gram Stain - CAN LOWER RESP Cancelled: Cancelled via OE: Per Decision 11/25 194 Blood Culture - RECD BLOOD 11/25 1850 Blood Culture - RECD BLOOD Assessment * Left leg cellulitis * Bilateral edema * Chronic venous stasis of lower extremities * Chronic hypoxic respiratory failure * History of bladder cancer status post TURBT * History of COPD and stage on chronic home O2 therapy * CKD stage IIIB * Acute and chronic renal failure-creatinine now at baseline * History of hypertension * Obstructive sleep apnea * Chronic anemia likely of chronic disease/inflammation Plan * Continue antibiotics * Leg elevation when resting * Wound care consult Dr. Dillard tomorrow * If patient's edema does not improve we may need to switch Lasix to IV
--- NOTE | 2016-11-26 11:42 | PN- Housestaff ---
Subjective Follow-up For: Cellulitis Anemia Subjective: Patient is sitting comfortably in the chair. Nurse is in the room, just finished changing the dressing on his let leg and reports erythema and some skin breakdowns. Overall the patient looks stable, denies any difficulty breathing chest pain fever or chills. Review of Systems Constitutional: Denies: see HPI. Objective Last 24 Hrs of Vital Signs/I&O Vital Signs Date Time Temp Pulse Resp B/P B/P Pulse O2 O2 Flow FiO2 Mean Ox Delivery Rate 11/26 1058 Nasal 3.0L Cannula 11/26 1057 95 Nasal 3.0L Cannula 11/26 0853 112/60 11/26 0853 112/60 11/26 0706 98.0 83 20 106/61 98 Nasal 3.0L Cannula 11/26 0133 98.4 90 20 110/50 11/26 0016 98.4 90 20 110/50 99 Nasal 3.0L Cannula 11/26 0000 98 Nasal 3.0L Cannula 11/25 2056 97.3 81 18 122/56 96 Nasal 3.5L Cannula 11/25 2024 95 Nasal 3.5L Cannula 11/25 1840 98.2 102 18 135/74 98 Room Air Intake & Output 11/26 1600 11/26 0800 11/26 0000 Intake Total 450 450 Output Total 300 Balance 150 450 Intake, IV 100 Intake, Oral 450 350 Output, Urine 300 Patient 206 lb Weight Weight Reported by Patient Measurement Method Physical Exam General Appearance: Alert, Oriented X3, Cooperative, No Acute Distress Other Physical Findings: General Appearance Alert, Oriented X3, Cooperative, No Acute Distress Skin No Rashes, erythema and skin breakdown on left lower extremity HEENT Atraumatic, PERRLA, EOMI Neck Supple, No JVD Cardiovascular Regular Rate, Normal S1, Normal S2, No Murmurs Lungs Clear to Auscultation, Normal Air Movement Abdomen Normal Bowel Sounds, Soft, No Tenderness, No Hepatospenomegaly, No Masses Neurological Normal Speech, Strength at 5/5 X4 Ext, Normal Tone, Sensation Intact Extremities No Clubbing, No Cyanosis, No Edema, Normal Pulses, Normal Capillary Refill Vascular Normal Pulses Current Medications: Current Medications Sig/Tim Start time Last Medication Dose Route Stop Time Status Admin Acetaminophen 650 MG Q6P PRN 11/26 29 AC PO Acetaminophen/ 1 TAB Q6P PRN 07/02 0030 DC Hydrocodone Bitart PO Albuterol Sulfate 3 ML TID 11/26 1600 AC 11/26 INH 1044 Albuterol Sulfate 2 PUF Q4 PRN 11/26 0045 AC 11/26 INH 0546 Ampicillin Sodium/ 0 .STK-MED ONE 11/25 1926 DC Sulbactam Sodium .ROUTE Ampicillin Sodium/ 1,500 MG ONCE ONE 11/25 1914 DC 11/25 Sulbactam Sodium IV 11/26 1943 195 Sodium Chloride 100 ML Carvedilol 12.5 MG BID 11/25 2344 AC 11/26 PO 0853 Cefazolin Sodium 1,000 MG IQ8 11/26 0000 AC 11/26 IV 0854 Doxazosin Mesylate 2 MG QPM 11/26 2200 AC PO Ferrous Sulfate 325 MG BID 11/26 1000 AC PO Furosemide 40 MG BID 11/25 2342 AC 11/26 PO 0853 Heparin Sodium 5,000 UNIT Q8 11/26 0027 AC 11/26 (Porcine) SC 0541 Insulin Aspart 0 TIDAC 11/26 0800 AC 11/26 SC 0854 Lorazepam 1 MG DAILY 11/26 1000 DC PO Losartan Potassium 25 MG DAILY 11/26 1000 AC 11/26 PO 0853 Morphine Sulfate 0 .STK-MED ONE 11/25 1926 DC .ROUTE Morphine Sulfate 4 MG ONCE ONE 11/25 1914 DC 11/25 IV 11/26 1915 195 Oxycodone HCl 30 MG Q4 PRN 11/26 1202 AC PO Oxycodone HCl 20 MG Q4 PRN 11/25 2345 DC 11/26 PO 0853 Last 24 Hrs of Lab/Ryder Results Last 24 Hrs of Labs/Mics: Laboratory Tests 11/26/16743: Anion Gap 9, Estimated GFR 38 L, BUN/Creatinine Ratio 18.3 11/26/16 0744: Total Bilirubin Pending, Direct Bilirubin Pending, AST Pending, ALT Pending, Alkaline Phosphatase Pending, Total Protein Pending, Albumin Pending, CBC w Diff NO MAN DIFF REQ, RBC 2.69 L, MCV 95.0 H, MCH 31.1 H, RDW 15.8 H, MPV 7.7, Gran % 89.9 H, Lymphocytes % 4.6 L, Monocytes % 5.2, Eosinophils % 0.3, Basophils % 0 L, Absolute Granulocytes 8.8 H, Absolute Lymphocytes 0.5 L, Absolute Monocytes 0.5, Absolute Eosinophils 0, Absolute Basophils 0, PUBS MCHC 32.7 L 11/25/162147: Lactic Acid Cancelled 11/25/161849: Anion Gap 9, Estimated GFR 33 L, BUN/Creatinine Ratio 16.5, Glucose 108 H, Lactic Acid 0.9, Calcium 8.9, Iron 13 L, TIBC 207 L, Ferritin 381.0, Total Bilirubin 1.0, AST 83 H, ALT 88 H, Alkaline Phosphatase 138 H, Total Protein 6.4, Albumin 3.0 L, Globulin 3.4, Albumin/Globulin Ratio 0.9 L, Vitamin B12 215 L, Folate 5.2, TSH 0.738, Free T4 1.38, PT 13.4 H, INR 1.28 H, APTT 33, CBC w Diff NO MAN DIFF REQ, RBC 2.70 L, MCV 95.4 H, MCH 30.8, RDW 15.7 H, MPV 6.9 L, Gran % 92.4 H, Lymphocytes % 4.1 L, Monocytes % 3.4, Eosinophils % 0.1 , Basophils % 0 L, Absolute Granulocytes 12.9 H, Absolute Lymphocytes 0.6 L, Absolute Monocytes 0.5, Absolute Eosinophils 0, Absolute Basophils 0, PUBS MCHC 32.3 L Microbiology 11/26 1125 URINE ROUT: Urine Culture - RECD 11/26 202 LOWER RESP: Respiratory Culture - CAN Cancelled: Cancelled via OE: Per MD Decision 11/26 202 LOWER RESP: Gram Stain - CAN Cancelled: Cancelled via OE: Per MD Decision 11/25 1944 BLOOD: Blood Culture - RECD 11/25 1849 BLOOD: Blood Culture - RECD Assessment/Plan Assessment: Patient 66-year-old male with past history of diabetes, bilateral venous stasis with dermatitis, recurrent lower extremity cellulitis, peripheral neuropathy, CAD, and HTN presenting with cellulitis of LLE and slightly macrocytic anemia. 1. Cellulitis Patient has a history of diabetes, bilateral venous stasis dermatitis, recurrent lower extremity cellulitis. The visiting nurse who changes the patient dressings noted increasing erythema of his LLE. The erythema is mostly located at the left anterior knee extending into the lateral thigh. His wound care is managed by Dr. Patterson. The patient needs daily dressing with xeroform. The patient denies any systemic symptoms. Patient was started on Unasyn. Follow up with wound consult. This patient should be managed as prescribed. Panculture needs to be followed up. -Continue Unasyn -f/u wound consult. -daily dressings with xeroform -f/u blood cultures -pain management with oxycodone 2. Mixed(Macro & Microcytic) anemia -H&H is 8.4/25.5. Iron studies show microcytic anemia.Started him on ferrous sulphate. - Vitamin B12 is 215 and MCV is high (95). Also complains of long standing neuropathy. Will start the patient on B12 1000IU daily. -ask about colonoscopy history 3. Transaminitis of unclear etiology Transaminitis possibly in the setting of active infection. We will need to trend LFTs. 4. Diabetes We have placed him on a sliding scale and will maintain blood sugar between 120- 140. -continue monitor glucose levels 5. Lower extremity edema His lower extremity edema stable. We'll continue him on his home medications. -continue lasix 40mg bid 6. HTN His HTN is stable. We'll continue him on his home medications. -continue home medications 7. CAD His CAD is stable. We'll continue him on his home medications. -continue home medications Problem List: 1. Cellulitis of left lower extremity 2. Anemia 3. Diabetes 4. Bilateral lower extremity edema 5. CAD (coronary artery disease) 6. HTN (hypertension) Pain Ratin Pain Location: LLE Pain Goal: Pain 4 or less Pain Plan: Pain Pathway Tomorrow's Labs & Rationales: CBC(Anemia), BEP (Abnormal RFTs,High Cr)
[2016-11-26 15:25] VITALS: BP 92/50
--- NOTE | 2016-11-26 19:17 | NUR ---
ALERT AND ORIENTED X 3. ON 4L O2 VIA NC. DENIES SHORTNESS OF BREATH VITAL SIGNS STABLE. DENIES CHEST PAIN. + PULSES. HX TINGLING TO BLE +2 EDEMA NOTED TO BLE. WEAK GAIT. DSGS ARE C/D/I. MEDICATION GIVEN FOR DISCOMFORT. WILL CONTINUE TO MONITOR
[2016-11-26 21:33] VITALS: BP 80/40
--- NOTE | 2016-11-26 21:33 | Event Note ---
See Addendum Event Note Event Note: S: Informed patients blood pressure was 80/40 B: Patient has been admitted and being treated for Cellulitis. A/R: Visisted patient with program management intern. He was alert and oriented, states he feels better. Denies any vision changes, or lightheadedness. States he has a tendency for his blood pressure to drop periodically. Patient informed that should he experience any vision changes or develop any unusual symptoms, he is to notify the nurse immmediately. He requests some snacks as he is currenlty hungry. Will hold PM Lasix. Pain medications, to be used sparingly. Will continue to monitor. Update: BP: 84/60. Patient still awake. Concerned about low BP. Says he has not voided since the afternoon. Feels a little lightheaded. Will begin patient on maintainance fluids, NS @ 100ml/hr. Will Continue to monitor. 455. Patient moved from bed to couch. Appears more comfortable. Will sign out to AM team and assess need for additional intervention.
--- NOTE | 2016-11-26 22:50 | NUR ---
2129 SHOT DROPPER AWARE OF BP OF 80/40. PATIENT DENIES FEELING LIGHT HEADED. SHOT DROPPER AWARE. BP MEDS AND LASIX HELD PER ORDER.
[2016-11-27 01:53] VITALS: BP 84/50
--- NOTE | 2016-11-27 02:09 | NUR ---
NURSING NOTE: PT'S BP 84/50 AT THIS TIME. A&OX3, RESTING IN BED, NO COMPLAINTS AT THIS TIME/NO ACUTE DISTRESS. MD PERRIN 394 MADE AWARE; STATED PATIENT PREVIOUSLY REPORTED TO MD THAT HIS BP RUNS LOW AT TIMES AND CORRECTS ITS SELF. NO FURTHER ORDERS AT THIS TIME, WILL CONTINUE TO MONITOR.
[2016-11-27 07:23] VITALS: BP 80/50
--- NOTE | 2016-11-27 08:35 | PN- Housestaff ---
Subjective Follow-up For: Cellulitis Anemia Hypotension Subjective: I have personally seen and examined the patient today. Patient reports he is unable to urinate and he wants to see Dr. Mary(urologist) who the patient usually follows up with. Denies any fever and chills. Review of Systems Constitutional: Reports: see HPI. Objective Last 24 Hrs of Vital Signs/I&O Vital Signs Date Time Temp Pulse Resp B/P B/P Pulse O2 O2 Flow FiO2 Mean Ox Delivery Rate 11/27 1515 97.8 60 20 108/54 96 Nasal 3.5L Cannula 11/27 1129 72 90/48 11/27 1000 96 Nasal 3.5L Cannula 11/27 0927 68 88/50 11/27 0926 68 88/50 11/27 0723 97.6 66 20 80/50 96 Nasal 4.0L Cannula 11/27 0153 84/50 11/27 0000 96 Nasal 3.0L Cannula 11/26 2152 80/40 11/26 2133 97.8 62 20 80/40 96 Nasal 3.0L Cannula 11/26 1920 99 Nasal 3.0L Cannula Intake & Output 11/27 1600 03 0800 11/27 0000 Intake Total 1920 1070 550 Output Total 350 150 375 Balance 1570 920 175 Intake, IV 1000 350 Intake, Oral 920 720 550 Number 0 Bowel Movements Output, Urine 350 150 375 Physical Exam General Appearance: Alert, Oriented X3, Cooperative Other Physical Findings: Skin No Rashes HEENT Atraumatic, PERRLA, EOMI Neck Supple, No JVD Cardiovascular Regular Rate, Normal S1, Normal S2, No Murmurs Lungs Clear to Auscultation, Normal Air Movement Abdomen Normal Bowel Sounds, Soft, No Tenderness, No Hepatospenomegaly, No Masses Neurological Normal Gait, Normal Speech, Strength at 5/5 X4 Ext, Normal Tone, Sensation Intact Extremities No Clubbing, No Cyanosis, No Edema, Normal Pulses, Normal Capillary Refill Vascular Normal Pulses Current Medications: Current Medications Sig/Tim Start time Last Medication Dose Route Stop Time Status Admin Acetaminophen 650 MG Q6P PRN 11/26 0030 AC PO Albuterol Sulfate 3 ML TID 11/26 1600 AC 11/27 INH 1325 Albuterol Sulfate 2 PUF Q4 PRN 11/26 0045 AC 11/27 INH 0918 Calcium Carbonate 500 MG ONCE ONE 11/27 1215 DC 07 PO 11/27 1216 1225 Carvedilol 12.5 MG BID 11/25 2344 AC 11/26 PO 0853 Cefazolin Sodium 1,000 MG IQ8 07/ 0000 AC 11/27 IV 1634 Clopidogrel Bisulfate 75 MG DAILY 11/27 1443 AC 11/27 PO 1634 Cyanocobalamin 1,000 MCG DAILY 11/26 1300 AC 11/27 PO 0917 Docusate Sodium 100 MG DAILY 11/27 1545 AC PO Doxazosin Mesylate 2 MG QPM 07/ 2200 AC 11/26 PO 2151 Famotidine 20 MG DAILY 11/28 1000 DC PO Famotidine 20 MG DAILY 11/27 1615 AC 11/27 PO 1634 Famotidine 20 MG BID 11/27 1446 DC PO Ferrous Sulfate 325 MG BID 11/26 1000 AC 11/27 PO 0917 Finasteride 5 MG DAILY 11/27 1443 AC 11/27 PO 1634 Furosemide 40 MG BID 11/25 2342 DC 11/26 PO 0853 Heparin Sodium 5,000 UNIT Q8 11/26 0027 AC 11/27 (Porcine) SC 1430 Insulin Aspart 0 TIDAC 11/26 0800 AC 11/27 SC 1723 Losartan Potassium 25 MG DAILY 11/26 1000 AC 11/26 PO 0853 Nystatin 1 ELIZABETH BID PRN 11/27 1000 AC TOP Omeprazole 20 MG DAILY AC 11/26 1821 DC 11/27 PO 0538 Omeprazole 40 MG DAILY AC 11/26 1400 DC PO Oxycodone HCl 10 MG ONCE ONE 11/27 1300 DC 11/27 PO 11/27 1301 1428 Oxycodone HCl 20 MG Q4P PRN 11/27 0844 AC PO Oxycodone HCl 30 MG Q4 PRN 11/26 1202 DC 11/26 PO 2151 Senna 187 MG AT BEDTIME 11/27 1545 AC 11/27 PO 1652 Sodium Chloride 1,000 ML Q10H 11/27 1145 AC 11/27 IV 11/27 2144 1204 Sodium Chloride 500 ML BOLUS ONE 11/27 0930 DC 11/27 IV 11/27 1029 0931 Sodium Chloride 1,000 ML Q10H 11/27 0300 DC 11/27 IV 0334 Last 24 Hrs of Lab/Ryder Results Last 24 Hrs of Labs/Mics: Laboratory Tests 11/27/16 1118: Anion Gap 9, Estimated GFR 27 L, BUN/Creatinine Ratio 17.5, Phosphorus 4.3, Magnesium 2.4 H, Cortisol AM Sample 23.9 H, CBC w Diff NO MAN DIFF REQ, RBC 2.57 L, MCV 94.7 H, MCH 31.0, RDW 15.4 H, MPV 7.7, Gran % 82.7 H, Lymphocytes % 9.7 L, Monocytes % 6.6, Eosinophils % 0.9, Basophils % 0.1, Absolute Granulocytes 3.6, Absolute Lymphocytes 0.4 L, Absolute Monocytes 0.3, Absolute Eosinophils 0, Absolute Basophils 0, PUBS MCHC 32.8 L Microbiology 11/27 1220 LOWER RESP: Respiratory Culture - CAN Cancelled: NUMBER OF SQUAMOUS CELLS INDICATES POOR QUALITY SPECIMEN 11/27 1220 LOWER RESP: Gram Stain - CAN Cancelled: NUMBER OF SQUAMOUS CELLS INDICATES POOR QUALITY SPECIMEN Assessment/Plan Assessment: Patient 66-year-old male with past history of diabetes, bilateral venous stasis with dermatitis, recurrent lower extremity cellulitis, peripheral neuropathy, CAD, and HTN presenting with cellulitis of LLE and slightly macrocytic anemia. 1. Cellulitis Patient has a history of diabetes, bilateral venous stasis dermatitis, recurrent lower extremity cellulitis. The visiting nurse who changes the patient dressings noted increasing erythema of his LLE. The erythema is mostly located at the left anterior knee extending into the lateral thigh. His wound care is managed by Dr. Patterson. The patient needs daily dressing with xeroform. The patient denies any systemic symptoms. Patient was started on Unasyn. This patient should be managed as prescribed. Panculture needs to be followed up. -Continue Unasyn -As per Wound Care Consult; Elevate bilateral lower extremities and would hold compression at this time. Cleanse left foot wound with normal saline followed by betdaine moist gauze and kerlix daily and prn - Leave right leg open to air. -f/u blood cultures -pain management with oxycodone -Nystatin powder for interdigital area 2. Mixed(Macro & Microcytic) anemia -H&H is 8/24.3 today. Iron studies show microcytic anemia.Started him on ferrous sulphate. - Vitamin B12 is 215 and MCV is high (94.7). Also complains of long standing neuropathy. Will start the patient on B12 1000IU daily. -ask about colonoscopy history 3. Transaminitis of unclear etiology Transaminitis possibly in the setting of active infection. We will need to trend LFTs. 4. Diabetes We have placed him on a sliding scale and will maintain blood sugar between 120- 140. -continue monitor glucose levels 5. Lower extremity edema His lower extremity edema is stable. - Holding lasix for now because of low blood pressure. 6. Hypotension Patient was hypotensive this morning alongwith low urine output. Bladder scan did not show any retention. Given fluid boluses and will hold off on diuretics till his blood pressure is stable and urine output improves. 7. CAD His CAD is stable. We'll continue him on his home medications. -continue home medications Problem List: 1. Diabetes mellitus 2. Cellulitis of left lower extremity 3. Anemia 4. CAD (coronary artery disease) Pain Ratin Pain Location: LLE Pain Goal: Pain 4 or less Pain Plan: Pain pathway Tomorrow's Labs & Rationales: CBC (Anemia), BEP
--- NOTE | 2016-11-27 11:00 | NUR ---
NOTED THAT PATIENT WAS PREVIOUSLY HYPOTENSIVE. BP THIS AM; 0800 84/50 0900 88/52, 500 ML BOLUS GIVEN PER MD, CARDIAC MEDS HELD PER MD 1030 90/50 1400 104/54 ALL OTHER VSS. RESIDENT KOEHLER UPDATED WITH NEW VALUES.
[2016-11-27 11:29] VITALS: BP 90/48
[2016-11-27 11:48] LABS: ABSOLUTE BASOPHIL COUNT 0 /CUMM (0.0-0.2); ABSOLUTE EOSINOPHIL COUNT 0 /CUMM (0.0-0.7); ABSOLUTE LYMPH COUNT 0.4 /CUMM (1.2-3.4); ABSOLUTE MONOCYTE COUNT 0.3 /CUMM (0.10-0.60); PLATELET COUNT 273 /CUMM (130-400)
[2016-11-27 11:53] LABS: ABSOLUTE GRANULOCYTE CT 3.6 /CUMM (1.4-6.5); BASOPHIL % 0.1 % (0.0-2.0); EOSINOPHIL % 0.9 % (0-5); GRANULOCYTE % 82.7 % (42.2-75.2); HEMATOCRIT 24.3 % (42-52); MEAN CORPUSCULAR HGB CONC 32.8 G/DL (33.0-37.0); MEAN CORPUSCULAR VOLUME 94.7 FL (80.0-94.0); MEAN PLATELET VOLUME 7.7 FL (7.4-10.4); RBC DISTRIBUTION WIDTH 15.4 % (11.5-14.5); RED BLOOD CELL CT 2.57 /CUMM (4.70-6.10)
[2016-11-27 11:54] LABS: WHITE BLOOD CELL COUNT 4.3 /CUMM (4.8-10.8)
[2016-11-27 15:15] VITALS: BP 108/54
--- NOTE | 2016-11-27 15:34 | PN- Att Addend ---
Attending MD Review Statement Attending Statement Attending MD Statement: examined this patient, discuss w/resident/PA/HEAD ANIMAL TRAINER, agreed w/resident/PA/HEAD ANIMAL TRAINER, reviewed EMR data (avail), discussed w/nursing, discussed w/ case mgmt Attending Assessment/Plan: 66-year-old male with past history of diabetes, BPH, COPD on home oxygen, Peripheral neuropathy, bilateral venous stasis with dermatitis, recurrent lower extremity cellulitis, peripheral neuropathy, CAD, and HTN presenting with cellulitis of both LE currently on iv cefazolin Pt had low bp this am alongwith low urine output, Bladder scan showing no retention. Given fluid boluses and will hold off on diuretics till bp is stable and urine output improves. d/w pt the care plan .
--- NOTE | 2016-11-27 15:57 | NUR ---
WOUND CARE: REQUESTED BY NURSING STAFF TO EVALUATE PT FOR SKIN ALTERATIONS PRESENT ON ADMISSION - PT KNOWN TO THIS MILL TENDER FOR WEEKLY C VISITS FOR CHRONIC VENOUS STASIS ULCERS BLE - HX REVIEWED WITH PT - PT ADMITTED FOR LEFT UPPER LEG CELLULTIS INFECTION - COMPRESSION REMOVED - PT NOTED WITH A DTI TO RIGHT POSTERIOR CALF PROXIMAL TO KNEE - 1 X 5 CM AT SITE WHERE COMPRESSION ENDS - LEFT FOOT 3 X 7 CM AREA OF VENOUS STASIS ULCERATION DORSAL ASEPCT AT BASE OF ALL TOES - FOUL ODOR WIHT GREEN TINGED DRNG ON OLD DRESSING - PT FREQUENTLY HAS PROBLEMS WITH URINE SPILLAGE ONTO LEG BANDAGES AT HOME CAUSING CONTAMINATION OF DRESSINGS RECOMMEDNATION: ELEVATE BLE WIB - WOULD HOLD COMPRESSION AT THIS TIME PT WILL MAINTAIN ADEQUATE ELEVATION WHILE INPT AND IN BED - CLEANSE LEFT FOOT WOUNDS WITH NS FB BETDAINE MOIST GAUZE AND KERLIX DAILY AND PRN - LEAVE RIGHT LEG OPEN TO AIR
--- NOTE | 2016-11-27 19:45 | NUR ---
ALERT AND ORIENTED X 3. ON 3.5L O2 VIA NC. DENIES SHORTNESS OF BREATH VITAL SIGNS STABLE. DENIES CHEST PAIN. + PULSES. DENIES NUMBNESS/TINGLING REDNESS OF BLE. +3 EDEMA TO BLE. COCCYX RED AND BLANCHABLE. ASSIST X 1 W/RW. NO DISTRESS NOTED AT THIS TIME. DSG TO LLE IS C/D/I WILL CONTINUE TO MONITOR
[2016-11-27 23:00] VITALS: BP 98/52
--- NOTE | 2016-11-28 04:32 | NUR ---
PATIENT LBM 11/23/16. ABD DISTENDED AND FIRM, BS HYPOACTIVE. PATIENT REPORTS ABDOMINAL TENDERNESS. REGARSLESS THE PATIENT HAS BEEN ON BOWEL REGIMEN HE CONTINUES TO C/O OF CONSTIPATION. IN ADDITION PATIENT WAS C/O NECK PAIN AND LEG PAIN SECONDARY TO CELLULITIS WITH SCALE 9 OUT OF 10, HENCE PATIENT REFUSING TYLENOL. MD AURELIA DEWEY WAS MADE AWARE AND HE ORDERED AMITIZA 8 MCG AND ROXICODONE 20 MG WHICH WERE ADMINISTERED. AFTER APPROXIMATELY AN HOUR, PATIENT EXPRESSED SOME RELIEF OF NECK AND LEG PAIN BUT CONTINUES TO C/O CONSTIPATION. MD DEWEY & MAGALY WERE MADE AWARE AND BOTH CAME TO ASSESS PATIENT. DULCOLAX SUPPOSITORY DALAL ORDERED BUT PATIENT REFUSED STATING THEY DON'T WORK FOR HIM. MD DEWEY AND MD MCKENZIE WERE MADE AWARE. PATIENT STATED LAST TIME HE WAS CONSTIPATED, HE WENT TO ER, THEY GAVE HIM A SHOT IN THE ARM AND HE WAS ABLE TO MOVE HIS BOWEL WITHIN 1/2 HOUR. THIS RN CALLED ER, SPOKE TO CHARGE NURSE JIHAN AND REQUESTED TO LOOK AT PATIENT RECORD AND SEE WHAT KIND OF SHOT HE RECEIVED. ANDRY BOBO WAS ABLE TO CONFIRM THERE WAS NO SHOT, ALL HE GOT WAS ANTIBIOTICS. MD MCKENZIE WAS MADE AWARE. MD MCKENZIE ORDERED RELISTOR 12MG. WAITING FOR MED TO COME FROM PHARMACY. PATIENT RESTING IN BED. NO DISTRESS NOTED. WILL CONTINUE TO MONITOR.
--- NOTE | 2016-11-28 06:25 | NUR ---
PATIENT STILL DID NOT HAVE A BOWEL MOVEMENT. 1 X DUCOLAX SUPPOSITORY ADMINISTERED RIGHT NOW ORDERED. WILL CONTINUE TO MONITOR
[2016-11-28 06:40] VITALS: BP 130/62
[2016-11-28 07:48] LABS: ABSOLUTE BASOPHIL COUNT 0 /CUMM (0.0-0.2); ABSOLUTE EOSINOPHIL COUNT 0 /CUMM (0.0-0.7); ABSOLUTE GRANULOCYTE CT 3.3 /CUMM (1.4-6.5); ABSOLUTE LYMPH COUNT 0.5 /CUMM (1.2-3.4); ABSOLUTE MONOCYTE COUNT 0.4 /CUMM (0.10-0.60); BASOPHIL % 0.2 % (0.0-2.0); EOSINOPHIL % 0.8 % (0-5); GRANULOCYTE % 78.2 % (42.2-75.2); MEAN CORPUSCULAR HGB 31.2 PG (27.0-31.0); MEAN CORPUSCULAR VOLUME 94.6 FL (80.0-94.0); MEAN PLATELET VOLUME 7.4 FL (7.4-10.4); PLATELET COUNT 309 /CUMM (130-400); RBC DISTRIBUTION WIDTH 16.1 % (11.5-14.5); RED BLOOD CELL CT 2.64 /CUMM (4.70-6.10); WHITE BLOOD CELL COUNT 4.2 /CUMM (4.8-10.8)
--- NOTE | 2016-11-28 08:04 | PN- Housestaff ---
See Addendum Subjective Follow-up For: Cellulitis Anemia Subjective: I have personally seen and examined the patient today. Patient reports being uncomfortable because he has not had a bowel movement since November 23. Denies any fever and chills. Review of Systems Constitutional: Reports: see HPI. Objective Last 24 Hrs of Vital Signs/I&O Vital Signs Date Time Temp Pulse Resp B/P B/P Pulse O2 O2 Flow FiO2 Mean Ox Delivery Rate 11/28 0939 86 132/50 11/28 0939 86 132/50 11/28 0855 98 Nasal 3.5L Cannula 11/28 0800 99 Nasal 3.5L Cannula 11/28 0640 98.4 96 22 130/62 97 11/28 0000 Nasal 3.5L Cannula 11/27 2300 97.6 74 20 98/52 94 Nasal 4.0L Cannula 11/27 2133 81 109/50 11/27 1858 99 Nasal 3.0L Cannula 11/27 1600 Nasal 3.5L Cannula 11/27 1515 97.8 60 20 108/54 96 Nasal 3.5L Cannula Intake & Output 11/28 1600 11/28 0800 11/28 0000 Intake Total 300 500 Output Total 400 1000 Balance -100 -500 Intake, Oral 300 500 Output, Urine 400 1000 Physical Exam General Appearance: Alert, Oriented X3, Cooperative Other Physical Findings: Skin No Rashes HEENT Atraumatic, PERRLA, EOMI Neck Supple, No JVD Cardiovascular Regular Rate, Normal S1, Normal S2, No Murmurs Lungs Clear to Auscultation, Normal Air Movement Abdomen Normal Bowel Sounds, Soft, No Tenderness, No Hepatospenomegaly, No Masses Neurological Normal Gait, Normal Speech, Strength at 5/5 X4 Ext, Normal Tone, Sensation Intact Extremities No Clubbing, No Cyanosis, No Edema, Normal Pulses, Normal Capillary Refill Vascular Normal Pulses Current Medications: Current Medications Sig/Tim Start time Last Medication Dose Route Stop Time Status Admin Acetaminophen 650 MG Q6P PRN 11/26 0030 AC PO Albuterol Sulfate 3 ML TID 11/26 1600 AC 11/28 INH 0851 Albuterol Sulfate 2 PUF Q4 PRN 11/26 0045 AC 11/27 INH 0918 Bisacodyl 10 MG ONCE ONE 11/28 629 DC 11/28 GA 07/04 0631 0621 Bisacodyl 10 MG ONCE ONE 11/28 0315 DC GA 11/28 0316 Carvedilol 12.5 MG BID 11/25 2344 AC 11/28 PO 0939 Cefazolin Sodium 1,000 MG IQ8 11/26 0000 AC 11/28 IV 0935 Clopidogrel Bisulfate 75 MG DAILY 11/27 1443 AC 11/28 PO 0935 Cyanocobalamin 1,000 MCG DAILY 11/26 1300 AC 11/28 PO 0935 Docusate Sodium 100 MG DAILY 11/27 1545 AC 11/28 PO 0935 Doxazosin Mesylate 2 MG QPM 11/26 2200 AC 11/27 PO 2134 Famotidine 20 MG DAILY 11/28 1000 DC PO Famotidine 20 MG DAILY 11/27 1615 AC 11/28 PO 0935 Famotidine 20 MG BID 11/27 1446 DC PO Ferrous Sulfate 325 MG BID 11/26 1000 AC 11/28 PO 0935 Finasteride 5 MG DAILY 11/27 1443 AC 11/28 PO 0935 Furosemide 40 MG DAILY 11/29 1000 AC PO Heparin Sodium 5,000 UNIT Q8 11/26 0027 AC 11/28 (Porcine) SC 0518 Insulin Aspart 0 TIDAC 11/26 0800 AC 11/27 SC 1723 Losartan Potassium 25 MG DAILY 11/26 1000 AC 11/28 PO 0939 Lubiprostone 8 MCG ONCE ONE 11/27 2345 DC 11/28 PO 11/27 2346 0126 Methylnaltrexone 12 MG ONCE ONE 11/28 0445 DC 11/28 [place] 11/28 0446 0518 Nystatin 1 ELIZABETH BID PRN 11/27 1000 AC TOP Omeprazole 20 MG DAILY AC 11/26 1821 DC 11/27 PO 0538 Oxycodone HCl 20 MG Q4P PRN 11/27 0844 AC 11/28 PO 0137 Senna 187 MG AT BEDTIME 11/27 1545 AC 11/27 PO 1652 Sodium Chloride 1,000 ML Q10H 11/27 1145 DC 11/27 IV 11/27 2144 1204 Sodium Phosphate 1 UNIT ONCE ONE 11/28 1215 DC 11/28 GA 11/28 1216 1215 Last 24 Hrs of Lab/Ryder Results Last 24 Hrs of Labs/Mics: Laboratory Tests 11/28/16 0630: Anion Gap 7, Estimated GFR 36 L, BUN/Creatinine Ratio 15.3, CBC w Diff NO MAN DIFF REQ, RBC 2.64 L, MCV 94.6 H, MCH 31.2 H, RDW 16.1 H, MPV 7.4, Gran % 78.2 H, Lymphocytes % 12.0 L, Monocytes % 8.8, Eosinophils % 0.8, Basophils % 0.2, Absolute Granulocytes 3.3, Absolute Lymphocytes 0.5 L, Absolute Monocytes 0.4, Absolute Eosinophils 0, Absolute Basophils 0, PUBS MCHC 33.0 Assessment/Plan Assessment: Patient 66-year-old male with past history of diabetes, bilateral venous stasis with dermatitis, recurrent lower extremity cellulitis, peripheral neuropathy, CAD, and HTN presenting with cellulitis of LLE and slightly macrocytic anemia. 1. Cellulitis Patient has a history of diabetes, bilateral venous stasis dermatitis, recurrent lower extremity cellulitis. The visiting nurse who changes the patient dressings noted increasing erythema of his LLE. The erythema is mostly located at the left anterior knee extending into the lateral thigh. His wound care is managed by Dr. Patterson. The patient needs daily dressing with xeroform. The patient denies any systemic symptoms. Patient was started on Unasyn. This patient should be managed as prescribed. Panculture needs to be followed up. -Continue Unasyn -As per Wound Care Consult; Elevate bilateral lower extremities and would hold compression at this time. Cleanse left foot wound with normal saline followed by betdaine moist gauze and kerlix daily and prn - Leave right leg open to air. -f/u blood cultures -pain management with oxycodone -Nystatin powder for interdigital area 2. Mixed(Macro & Microcytic) anemia -H&H is 8.2/25 today. Iron studies show microcytic anemia.Started him on ferrous sulphate. - Vitamin B12 is 215 and MCV is high (94.6). Also complains of long standing neuropathy. Will start the patient on B12 1000IU daily. -ask about colonoscopy history 3. Transaminitis of unclear etiology Transaminitis possibly in the setting of active infection. We will need to trend LFTs. 4. Diabetes We have placed him on a sliding scale and will maintain blood sugar between 120- 140. -continue monitor glucose levels 5. Lower extremity edema His lower extremity edema is stable. - Holding lasix for now because of low blood pressure. 6. Hypotension Patient was hypotensive this morning alongwith low urine output. Bladder scan did not show any retention. Given fluid boluses and will hold off on diuretics till his blood pressure is stable and urine output improves. 7. CAD His CAD is stable. We'll continue him on his home medications. -continue home medications 8. Constipation Patient has not had a bowel movement since November 23. Patient was given one dose of 10mg dulcolax suppository and also started him on Colace 100mg PO. Problem List: 1. Cellulitis of left lower extremity 2. Diabetes 3. Anemia 4. CAD (coronary artery disease) Pain Ratin Pain Location: LLE Pain Goal: Pain 4 or less Pain Plan: Pain Pathway Tomorrow's Labs & Rationales: CBC(Cellulitis)
[2016-11-28 14:39] VITALS: BP 134/86
--- NOTE | 2016-11-28 21:00 | NUR ---
PT C/O ABD DISCOMFORT, PT STATES HE IS UNABLE TO VOID AT THIS TIME. BLADDER SCAN SHOWING 180ML. PIPE WASHER, AURELIA DEWEY, NOTIFIED AND UP TO SEE PT. ORDER RECEIVED FOR TUMS. PT MEDICATED PER ORDERS, WILL CONTINUE TO MONITOR.
[2016-11-28 21:10] VITALS: BP 146/68
--- NOTE | 2016-11-29 00:33 | NUR ---
PT C/O HE IS UNABLE TO URINATE. ASSISTED TO STAND AT SIDE OF BED WITH NO RESULTS. BLADDER SCAN NOW SHOWING 568ML. EDGE INKER HEELS AURELIA DEWEY PAGED, AWAITING CALL BACK.
[2016-11-29 06:18] VITALS: BP 136/60
--- NOTE | 2016-11-29 08:15 | PN- Wound Care ---
Subjective Subjective: Patient still complains of left leg pain erythema is markedly improved as his edema. Lower extremity venous stasis ulcers appear healed Objective Vital Signs and I&Os Vital Signs Result Date Time Pulse Ox 97 11/29 617 B/P 136/60 11/29 617 O2 Delivery Nasal Cannula 11/29 617 O2 Flow Rate 3.5L 11/29 617 Temp 98.5 11/29 617 Pulse 80 11/29 617 Resp 20 11/29 617 Intake & Output 11/29 0000 11/28 1600 11/28 0800 Intake Total 120 300 Output Total 201 400 Balance 120 -201 -100 Intake, Oral 120 300 Output, Stool 1 Output, Urine 200 400 There is marked decrease in edema with closed venous stasis ulcers. There is residual erythema over the dorsum of his left foot with some localized edema dorsal wounds appear closed Impression/Plan Impression/Plan Impression/Plan: 66-year-old gentleman with chronic venous insufficiency and edema admitted with soft tissue skin infection and venous stasis ulcers present on admission. These have improved dramatically with bed rest elevation and diuresis. Continue leg elevation no further wound dressings appear necessary. Patient should continue with CHF clinic following discharge. He can be placed in what I believe he has are Velcro compression devices at discharge
[2016-11-29 09:07] LABS: ABSOLUTE BASOPHIL COUNT 0 /CUMM (0.0-0.2); ABSOLUTE EOSINOPHIL COUNT 0.1 /CUMM (0.0-0.7); ABSOLUTE GRANULOCYTE CT 2.6 /CUMM (1.4-6.5); ABSOLUTE LYMPH COUNT 0.7 /CUMM (1.2-3.4); ABSOLUTE MONOCYTE COUNT 0.3 /CUMM (0.10-0.60); BASOPHIL % 0.1 % (0.0-2.0); EOSINOPHIL % 1.7 % (0-5); GRANULOCYTE % 69.7 % (42.2-75.2); HEMATOCRIT 24.4 % (42-52); MEAN CORPUSCULAR HGB 30.8 PG (27.0-31.0); MEAN CORPUSCULAR HGB CONC 32.6 G/DL (33.0-37.0); MEAN CORPUSCULAR VOLUME 94.6 FL (80.0-94.0); MEAN PLATELET VOLUME 7.4 FL (7.4-10.4); PLATELET COUNT 272 /CUMM (130-400); RBC DISTRIBUTION WIDTH 15.7 % (11.5-14.5); RED BLOOD CELL CT 2.57 /CUMM (4.70-6.10); WHITE BLOOD CELL COUNT 3.7 /CUMM (4.8-10.8)
--- NOTE | 2016-11-29 13:24 | PN- Housestaff ---
ANALIA IRAHETA,[facility] 11/29/16 1324: Subjective Follow-up For: Cellulitis Anemia Subjective: I have personally seen and examined the patient today. Patient seems much better from yesterday. Reports improvemnt in his symptoms. Denies any fever and chills. Review of Systems Constitutional: Denies: see HPI. EENTM: Denies: see HPI. Objective Last 24 Hrs of Vital Signs/I&O Vital Signs Date Time Temp Pulse Resp B/P B/P Pulse O2 O2 Flow FiO2 Mean Ox Delivery Rate 11/29 0953 98.5 80 20 136/60 11/29 0953 80 136/60 11/29 0943 98 Nasal 3.0L Cannula 11/29 0800 94 Nasal 3.5L Cannula 11/29 0618 98.5 80 20 136/60 97 Nasal 3.5L Cannula 11/29 0000 Nasal 3.5L Cannula 11/28 2110 98.6 79 20 146/68 98 11/28 2048 79 146/68 11/28 1439 98.0 76 20 134/86 100 Nasal 3.5L Cannula Intake & Output 11/29 1600 11/29 0800 11/29 0000 Intake Total 120 Output Total 600 Balance -600 120 Intake, Oral 120 Number 1 Bowel Movements Output, Urine 600 Physical Exam General Appearance: Alert, Oriented X3, Cooperative, No Acute Distress Other Physical Findings: Skin No Rashes, Lower extermities are erythematous and dry, HEENT Atraumatic, PERRLA, EOMI Neck Supple, No JVD Cardiovascular Regular Rate, Normal S1, Normal S2, No Murmurs Lungs Clear to Auscultation, Normal Air Movement Abdomen Normal Bowel Sounds, Soft, No Tenderness, No Hepatospenomegaly, No Masses Neurological Normal Gait, Normal Speech, Strength at 5/5 X4 Ext, Normal Tone, Sensation Intact Extremities No Clubbing, No Cyanosis, No Edema, Normal Pulses, Normal Capillary Refill, Vascular Normal Pulses Current Medications: Current Medications Sig/Tim Start time Last Medication Dose Route Stop Time Status Admin Acetaminophen 650 MG Q6P PRN 11/26 0030 AC PO Albuterol Sulfate 3 ML TID 11/26 1600 AC 11/29 INH 1338 Albuterol Sulfate 2 PUF Q4 PRN 11/26 0045 AC 11/29 INH 1235 Artificial Tears 2 GTT 4 TIMES/DAY PRN 11/29 1130 AC 11/29 OPH 1234 Calcium 600 MG ONCE ONE 11/29 1100 CAN PO 11/29 1101 Calcium Carbonate 500 MG ONCE ONE 11/29 1100 DC 11/29 PO 11/29 1101 1102 Calcium Carbonate 500 MG ONCE ONE 11/280 DC 11/28 PO 11/28 213 2158 Carvedilol 12.5 MG BID 11/25 2344 AC 11/29 PO 0953 Cefazolin Sodium 1,000 MG IQ8 11/26 0000 AC 11/29 IV 0833 Clopidogrel Bisulfate 75 MG DAILY 11/27 1443 AC 11/29 PO 0953 Cyanocobalamin 1,000 MCG DAILY 11/26 1300 AC 11/29 PO 0953 Docusate Sodium 100 MG DAILY 11/27 1545 AC 11/29 PO 0952 Doxazosin Mesylate 2 MG QPM 11/26 2200 AC 11/28 PO 2047 Famotidine 20 MG DAILY 11/27 1615 AC 11/29 PO 0953 Ferrous Sulfate 325 MG BID 11/26 1000 AC 11/29 PO 0953 Finasteride 5 MG DAILY 11/27 1443 AC 11/29 PO 0953 Furosemide 40 MG DAILY 11/29 1000 AC 11/29 PO 0953 Heparin Sodium 5,000 UNIT Q8 11/26 0027 AC 11/29 (Porcine) SC 0600 Insulin Aspart 0 TIDAC 11/26 0800 AC 11/27 SC 1723 Losartan Potassium 25 MG DAILY 11/26 1000 AC 11/29 PO 0953 Nystatin 1 ELIZABETH BID PRN 11/27 1000 AC TOP Oxycodone HCl 20 MG Q4P PRN 11/27 0844 AC 11/29 PO 1054 Senna 187 MG AT BEDTIME 11/27 1545 AC 11/28 PO 2158 Last 24 Hrs of Lab/Ryder Results Last 24 Hrs of Labs/Mics: Laboratory Tests 11/29/16 0624: Anion Gap 5, Estimated GFR 47 L, BUN/Creatinine Ratio 13.3, CBC w Diff NO MAN DIFF REQ, RBC 2.57 L, MCV 94.6 H, MCH 30.8, RDW 15.7 H, MPV 7.4, Gran % 69.7, Lymphocytes % 19.5 L, Monocytes % 9.0, Eosinophils % 1.7, Basophils % 0.1, Absolute Granulocytes 2.6, Absolute Lymphocytes 0.7 L, Absolute Monocytes 0.3, Absolute Eosinophils 0.1, Absolute Basophils 0, PUBS MCHC 32.6 L Assessment/Plan Assessment: Patient 66-year-old male with past history of diabetes, bilateral venous stasis with dermatitis, recurrent lower extremity cellulitis, peripheral neuropathy, CAD, and HTN presenting with cellulitis of LLE and slightly macrocytic anemia. 1. Cellulitis Patient has a history of diabetes, bilateral venous stasis dermatitis, recurrent lower extremity cellulitis. The visiting nurse who changes the patient dressings noted increasing erythema of his LLE. The erythema is mostly located at the left anterior knee extending into the lateral thigh. His wound care is managed by Dr. Patterson. The patient needs daily dressing with xeroform. The patient denies any systemic symptoms. Patient was started on Unasyn. This patient should be managed as prescribed. Panculture needs to be followed up. -Continue Unasyn -As per Wound Care Consult; Elevate bilateral lower extremities and would hold compression at this time. Cleanse left foot wound with normal saline followed by betdaine moist gauze and kerlix daily and prn - Leave right leg open to air. -f/u blood cultures -pain management with oxycodone -Nystatin powder for interdigital area 2. Mixed(Macro & Microcytic) anemia -H&H is stable. Iron studies before showed microcytic anemia.Started him on ferrous sulphate. - Vitamin B12 was low and MCV was high. Also complains of long standing neuropathy. Started her on B12 1000IU daily. -ask about colonoscopy history 3. Transaminitis of unclear etiology Transaminitis possibly in the setting of active infection. We will need to trend LFTs. 4. Diabetes We have placed him on a sliding scale and will maintain blood sugar between 120- 140. -continue monitor glucose levels 5. Lower extremity edema His lower extremity edema is stable. - Lasix was held because of low blood pressure. Restarting today. 6. Urinary retension Patient had low urine output. Bladder scan showing urinarn retention. Intermittent Catherterization was done tp relieve the retention. 7. CAD His CAD is stable. We'll continue him on his home medications. -continue home medications 8. Constipation Patient has not had a bowel movement since November 23. Patient was given one dose of 10mg dulcolax suppository and also started him on Colace 100mg PO. Had a bowel movement yesterday. Problem List: 1. Cellulitis 2. Anemia 3. Diabetes 4. CAD (coronary artery disease) Pain Ratin Pain Location: LLE Pain Goal: Pain 4 or less Pain Plan: Pain Pathway Tomorrow's Labs & Rationales: None VON GARCIA MD 11/29/16 1437: Attending MD Review Statement Attending Statement Attending MD Statement: examined this patient, discuss w/resident/PA/ELECTRICAL HARDWARE ENGINEER, agreed w/resident/PA/ELECTRICAL HARDWARE ENGINEER, reviewed EMR data (avail) Attending Assessment/Plan: Patient feels much improved today. His legs are improved. He feels well. Labs reviewed. Patient can be discharged home tomorrow on Cephalexin to complete 14 day total antibiotic course. Will have home wound care and nursing services, continue home medications. Pleaseplace anticipated discharge order and send CMR to pharmacy for review.
--- NOTE | 2016-11-29 13:29 | NUR ---
Physical Therapy: Consult received and chart reviewed. Pt is w/c bound at baseline. At this time acute skilled PT does not appear to be indicated. Spoke with Referring MD who is aware. Will not follow. Thank you.
[2016-11-29 14:37] VITALS: BP 108/68
[2016-11-29] MEDS ORDERED: FERROUS SULFAT325 M2 PO (21:15)
--- NOTE | 2016-11-29 21:17 | Patient Discharge Instructions ---
Discharge Instructions General Discharge Information You were seen/treated for: Infection of the skin (cellulitis) Watch for these problems: Fevers, chills, increased redness/pain in the lower extremities Special Instructions: Please take all medications as directed. Please follow-up with her PCP within one week after discharge. Please follow-up with your wound care provider at the next scheduled appointment. Please follow-up with Dr. Mary at your next scheduled appointment Diet Recommended Diet: Diabetic Activity Activity Self Limited: Yes Acute Coronary Syndrome Inclusion Criteria At DC or during hospital stay patient has or had the following: ACS DIAGNOSIS No Discharge Core Measures Meds if any: Prescribed or Continued at Discharge Meds if any: NOT Prescribed or Continued at Discharge Congestive Heart Failure Inclusion Criteria At DC or during hospital stay patient has or had the following: CHF DIAGNOSIS No Discharge Core Measures Meds if any: Prescribed or Continued at Discharge Meds if any: NOT Prescribed or Continued at Discharge Cerebrovascular accident Inclusion Criteria At DC or during hospital stay patient has or had the following: CVA/TIA Diagnosis No Discharge Core Measures Meds if any: Prescribed or Continued at Discharge Meds if any: NOT Prescribed or Continued at Discharge Venous thromboembolism Inclusion Criteria VTE Diagnosis No VTE Type NONE VTE Confirmed by (Test) NONE Discharge Core Measures - Per Current guidelines, there needs to be overlap - treatment for the first 5 days of Warfarin therapy. - If discharged on Warfarin prior to 5 days of - overlap therapy, the patient will need to be - assessed for post discharge needs including - *Post discharge parental anticoagulation - *Warfarin and/or parental anticoagulation education - *Follow up date to check INR post discharge At least 5 days overlap therapy as Inpatient No Meds if any: Prescribed or Continued at Discharge Note: Overlap Therapy is Warfarin and Anticoagulant Meds if any: NOT Prescribed or Continued at Discharge
[2016-11-29] MEDS ORDERED: CEPHALEXIN250 MG/51 PO (21:24)
[2016-11-29 22:28] VITALS: BP 92/60
[2016-11-30 02:18] VITALS: BP 130/50
--- NOTE | 2016-11-30 02:22 | NUR ---
NURSE NOTE: PT BP 130/50 AFTER FLUIDS. NUCLEAR REACTOR ENGINEER AWARE.
[2016-11-30 06:41] VITALS: BP 100/60
--- NOTE | 2016-11-30 07:47 | PN- Housestaff ---
ANALIA IRAHETA,SUZY 11/30/16 0747: Assessment/Plan Assessment: Patient 66-year-old male with past history of diabetes, bilateral venous stasis with dermatitis, recurrent lower extremity cellulitis, peripheral neuropathy, CAD, and HTN presenting with cellulitis of LLE and slightly macrocytic anemia. 1. Cellulitis Patient has a history of diabetes, bilateral venous stasis dermatitis, recurrent lower extremity cellulitis. The visiting nurse who changes the patient dressings noted increasing erythema of his LLE. The erythema is mostly located at the left anterior knee extending into the lateral thigh. His wound care is managed by Dr. Patterson. The patient needs daily dressing with xeroform. The patient denies any systemic symptoms. Patient was started on Unasyn. This patient should be managed as prescribed. Panculture needs to be followed up. -Continue Unasyn -As per Wound Care Consult; Elevate bilateral lower extremities and would hold compression at this time. Cleanse left foot wound with normal saline followed by betdaine moist gauze and kerlix daily and prn - Leave right leg open to air. -f/u blood cultures -pain management with oxycodone -Nystatin powder for interdigital area 2. Mixed(Macro & Microcytic) anemia -H&H is stable. Iron studies before showed microcytic anemia.Started him on ferrous sulphate. - Vitamin B12 was low and MCV was high. Also complains of long standing neuropathy. Started her on B12 1000IU daily. -ask about colonoscopy history 3. Transaminitis of unclear etiology Transaminitis possibly in the setting of active infection. We will need to trend LFTs. 4. Diabetes We have placed him on a sliding scale and will maintain blood sugar between 120- 140. -continue monitor glucose levels 5. Lower extremity edema His lower extremity edema is stable. - Lasix was held because of low blood pressure. Restarting today. 6. Urinary retension Patient had low urine output. Bladder scan showing urinarn retention. Intermittent Catherterization was done tp relieve the retention. 7. CAD His CAD is stable. We'll continue him on his home medications. -continue home medications 8. Constipation Patient has not had a bowel movement since November 23. Patient was given one dose of 10mg dulcolax suppository and also started him on Colace 100mg PO. Had a bowel movement yesterday. RADHA IRAHETA,VNO 11/30/16 1254: Attending MD Review Statement Attending Statement Attending MD Statement: examined this patient, discuss w/resident/PA/RESOURCE CONSERVATIONIST, agreed w/resident/PA/RESOURCE CONSERVATIONIST, reviewed EMR data (avail) Attending Assessment/Plan: Patient feels much improved today. His legs are improved. He feels well. Labs reviewed. Patient can be discharged on Cephalexin to complete 14 day total antibiotic course. Will have home wound care and nursing services, continue home medications. Will speak with PT and case management about possible STR for patient. Will follow up in CHF clinic as an outpatient.
[2016-11-30 08:36] LABS: ABSOLUTE BASOPHIL COUNT 0 /CUMM (0.0-0.2); ABSOLUTE EOSINOPHIL COUNT 0.1 /CUMM (0.0-0.7); ABSOLUTE GRANULOCYTE CT 3.6 /CUMM (1.4-6.5); ABSOLUTE LYMPH COUNT 0.8 /CUMM (1.2-3.4); ABSOLUTE MONOCYTE COUNT 0.3 /CUMM (0.10-0.60); BASOPHIL % 0.4 % (0.0-2.0); EOSINOPHIL % 2.4 % (0-5); GRANULOCYTE % 74.3 % (42.2-75.2); HEMATOCRIT 24.5 % (42-52); MEAN CORPUSCULAR HGB 30.8 PG (27.0-31.0); MEAN CORPUSCULAR HGB CONC 32.4 G/DL (33.0-37.0); MEAN CORPUSCULAR VOLUME 95.1 FL (80.0-94.0); MEAN PLATELET VOLUME 7.3 FL (7.4-10.4); PLATELET COUNT 258 /CUMM (130-400); RBC DISTRIBUTION WIDTH 15.4 % (11.5-14.5); RED BLOOD CELL CT 2.57 /CUMM (4.70-6.10); WHITE BLOOD CELL COUNT 4.9 /CUMM (4.8-10.8)
--- NOTE | 2016-11-30 08:40 | PN- Wound Care ---
Subjective Subjective: There appears to be more edema of the left lower leg. I discussed the benefits of rehabilitation and Mr. burt is now amenable to short-term rehabilitation Objective Vital Signs and I&Os Vital Signs Result Date Time Pulse Ox 100 12/01 799 O2 Delivery Nasal Cannula 12/01 799 O2 Flow Rate 3.5L 12/01 799 B/P 100/60 11/30 640 Temp 97.5 11/30 640 Pulse 76 11/30 640 Resp 20 11/30 640 Intake & Output 11/30 0000 11/29 1600 11/29 08 Intake Total 600 480 Output Total 750 400 600 Balance -150 80 -600 Intake, Oral 600 480 Number 1 Bowel Movements Output, Urine 750 400 600 Exam of the left leg shows there to be pitting edema prior left venous stasis ulcers appear healed as are the ulcers over the dorsum of his foot there remains an area of erythema. Along the upper right leg appears to be a unstageable ulcer with small blister. This is likely from a prior compression dressing and does not appear infected. Impression/Plan Impression/Plan Impression/Plan: 66-year-old gentleman with chronic venous insufficiency and edema admitted with soft tissue skin infection and venous stasis ulcers present on admission. These have improved dramatically with bed rest elevation and diuresis. Continue leg elevation no further wound dressings appear unnecessary for the left leg. Patient should continue with CHF clinic following discharge. Right upper leg ulcers can be covered with Xeroform daily. Patient is amenable to short-term rehabilitation
--- NOTE | 2016-11-30 12:42 | Discharge Summary ---
Visit Information Visit Dates Admission Date: 11/25/16 Discharge Date: 11/30/2016 Hospital Course Course Attending Physician: VON GARCIA MD Primary Care Physician: LETICIA IRAHETA,RICKY Reilly Other Care Providers: Dr. Patterson (wound care) Hospital Course: Mr. burt is a 66-year-old gentleman with a PMH of diabetes, bilateral venous stasis with dermatitis, recurrent lower extremity cellulitis, peripheral neuropathy, CAD, and HTN who presented with complaints of increased redness in his left leg after being noticed by the visiting nurse 2 days prior to presentation. This was localized around the left anterior knee extending into the lateral thigh with associated pain over the entire region. VS on admission: BP 135/74, HR 102, RR 18, SPO2 98% on RA, T 98.2 Physical exam on admission pertinent for left lower extremity erythema of the left knee extending to the lateral thigh and lower leg Pertinent labs on admission: WBC 14.0, H&H 8.3/25.8, chloride 96, bicarbonate 35 , BUN/CR 33/2.0, glucose 108, AST/ALT 83/88, vitamin B12 215L The patient was admitted to general medicine for management of the following problems: 1. Cellulitis 2. Macrocytic anemia 3. Transaminitis 4. Vitamin B12 deficiency 5. Chronic lower extremity edema 6. Hypertension Hospital course: 1. Cellulitis * The patient received 1 dose of Unasyn IV but was maintained on cefazolin 1 g IV Q*for DDX of uncomplicated cellulitis. The hospital course the blood cultures remained negative. We transitioned the patient to be discharged on cephalexin 10ml PO BID to complete a total course of 14 days for cellulitis. Right upper leg ulcers can be covered with Xeroform daily. 2. Iron studies: * Iron 13, TIBC 207, ferritin 381 * Started the patient on ferrous sulfate 325 mg PO BID 3. Transaminitis * Mild transaminitis on admission of unclear etiology. Stabilize throughout the hospital course 4. Vitamin B12 deficiency * Remained B12 level * Started the patient on cyanocobalamin 1000 g daily 5. Chronic lower extremity edema * The patient was seen by Dr. Patterson and campaign management specialist Fely with daily dressing changes and leg wrapping on day of discharge. Recommendations at discharge are to continue follow-up at the CHF clinic, intermittent leg wrapping and Right upper leg ulcers can be covered with Xeroform daily 6. Hypertension * Transiently held antihypertensives and Lasix on admission in the context of borderline low blood pressure. Restarted losartan 25 mg at discharge 7. History of BPH with urinary retention intermittently * Intermittent episodes of urinary retention requiring straight cath 1. Patient will be following up with Dr. Mary after discharge 8. Diabetes * Maintained patient on a sliding scale with Accu-Cheks well-controlled Allergies: Coded Allergies: aspirin (Severe, ANAPHYLAXIS 10/16/16) pregabalin (From LYRICA) (N/V 10/16/16) Disposition Summary Disposition Principal Diagnosis: Cellulitis of the lower extremity Additional Diagnosis: Chronic lower extremity edema Macrocytic anemia Vitamin B12 deficiency Transaminitis Discharge Disposition: SNF Discharge Instructions General Discharge Information Code Status: Full Code Patient's Diet: Heart healthy diet Patient's Activity: Wheel chair as tolerated Follow-Up Instructions/Appts: Please follow-up with your PCP within one week after discharge Please continue with leg elevation and follow-up at the CHF clinic for chronic venous stasis Right upper leg ulcers can be covered with Xeroform daily. Please take all medications as directed Medications at Discharge Discharge Medications: Continue taking these medications: Clopidogrel Bisulfate (Clopidogrel) 75 MG TABLET 1 Tablet ORAL DAILY Oxycodone HCl (Oxycodone HCl) 20 MG TABLET 1 Tablet ORAL Q4H as needed for PAIN Qty = 150 Carvedilol (Carvedilol) 12.5 MG TABLET 1 Tablet ORAL TWICE DAILY Qty = 180 Finasteride (Finasteride) 5 MG TABLET 1 Tablet ORAL DAILY Qty = 90 Furosemide (Furosemide) 40 MG TABLET 1 Tablet ORAL TWICE DAILY Qty = 180 Ezetimibe (Zetia) 10 MG TABLET 1 Tablet ORAL DAILY Qty = 90 Silodosin (Rapaflo) 8 MG CAPSULE 1 Capsule ORAL DAILY Qty = 30 Albuterol Sulfate (Proair Hfa) 90 MCG HFA.AER.AD 2 Puff Inhale through mouth EVERY 4 HOURS NEEDED as needed for BREATHING PROBLEMS Qty = 85 Terazosin HCl (Terazosin HCl) 2 MG CAPSULE 1 Capsule ORAL Every night Qty = 90 Insulin Glargine,Hum.rec.anlog (Lantus Solostar) 100 UNIT/ML (3 ML) INSULN.PEN 25 Unit Inject into fatty tissue Every night Qty = 15 Lorazepam (Lorazepam) 1 MG TABLET 1 Tablet ORAL DAILY Qty = 30 Losartan Potassium (Losartan Potassium) 25 MG TABLET 1 Tablet ORAL DAILY Qty = 90 Ranitidine (Ranitidine HCl) 150 MG TABLET 1 Tablet ORAL TWICE DAILY Qty = 180 Sennosides/Docusate Sodium (Docusate Sodium-Senna Tablet) 8.6 MG-50 MG TABLET 1 Tablet ORAL DAILY Qty = 20 Start taking the following new medications: Ferrous Sulfate (Ferrous Sulfate) 325 MG (65 MG IRON) TABLET.DR 1 Tablet ORAL TWICE DAILY Qty = 60 No Refills Cephalexin (Cephalexin) 250 MG/5 ML SUSP.RECON 10 Milliliters ORAL TWICE DAILY Qty = 200 No Refills Instructions: Take for 9 more days to stop on 12/08/16 Cyanocobalamin (Vitamin B-12) 1,000 MCG TABLET 1 Tablet ORAL DAILY Qty = 30 No Refills Copies To: JAVIER IRAHETA,SUREKHA Multani; LETICIA IRAHETA,RICKY Reilly; MONIQUE MARY MD
[2016-11-30] MEDS ORDERED: VITAMIN B-121000 MC3 PO (13:13)
[2016-11-30 14:00] VITALS: BP 120/60
[2016-11-30 15:21] VITALS: BP 120/48
--- NOTE | 2016-11-30 16:18 | NUR ---
AT 1530 PT COMPLAING ABOUT BEING DIZZY AND DOES NOT WANT TO GET D/C TO [facility]. VITALS CHECKED, BP 120/60, HR 79, O2 100% ON 3.5L., PT APPEARS STABLE AND COMFORTABLE IN BED. MD ALMONTE NOTIFIED OF DIZZINESS. MD LEMUS ASSESSING PATIENT AT 1610. AWAITING ORDERS
== END 2016-11-30 16:30 | DRG 603 ==
LOC: ERH 18:34 → ERHI 19:57 → 2NB 19:57 → ENRESERV 20:18 → ENTRNSPT 20:56 → CMPTRNSPT 21:01 → 2NB 21:12 → ENPENDDIS 11-30 13:17 → 2NB 11-30 16:30
PROVIDERS: Emergency Medicine; Internal Medicine; Internal Medicine Infectious Disease; Student in an Organized Health Care Education/Training Program; ADMIT Student in an Organized Health Care Education/Training Program
DX: L03.116 Cellulitis of left lower limb (principal); N17.9 Acute kidney failure, unspecified; J96.11 Chronic respiratory failure with hypoxia; I95.9 Hypotension, unspecified; E11.22 Type 2 diabetes mellitus with diabetic chronic kidney disease; E11.40 Type 2 diabetes mellitus with diabetic neuropathy, unspecified; Z99.81 Dependence on supplemental oxygen; L97.111 Non-pressure chronic ulcer of right thigh limited to breakdown of skin; J44.9 Chronic obstructive pulmonary disease, unspecified; Z79.4 Long term (current) use of insulin; E11.65 Type 2 diabetes mellitus with hyperglycemia; R74.0 Nonspecific elevation of levels of transaminase and lactic acid dehydrogenase [LDH]; I12.9 Hypertensive chronic kidney disease with stage 1 through stage 4 chronic kidney disease, or unspecified chronic kidney disease; N18.3 Chronic kidney disease, stage 3 (moderate); D53.9 Nutritional anemia, unspecified; E53.8 Deficiency of other specified B group vitamins; N40.1 Benign prostatic hyperplasia with lower urinary tract symptoms; R33.8 Other retention of urine; I25.10 Atherosclerotic heart disease of native coronary artery without angina pectoris; I87.2 Venous insufficiency (chronic) (peripheral); E78.5 Hyperlipidemia, unspecified; L97.521 Non-pressure chronic ulcer of other part of left foot limited to breakdown of skin; D50.9 Iron deficiency anemia, unspecified; K59.00 Constipation, unspecified; Z85.51 Personal history of malignant neoplasm of bladder; G47.33 Obstructive sleep apnea (adult) (pediatric); D63.1 Anemia in chronic kidney disease
CPT/HCPCS: 2NAP; 36415; 82436; 87040; 87070; 87086; 93005; 93010; 96374; 96375; J0690; J1644; J3490; J7040